=== PATIENT | male | born 1960 | race Caucasian/White ===

== ENCOUNTER 2018-11-09 14:31 | Emergency (ER) | payer MEDICAID, SELFPAY ==
[2018-11-09 14:37] VITALS: BP 130/90; PULSE 114; RESP 20; TEMP 36.8; O2SAT 97
--- NOTE | 2018-11-09 14:51 | W.ED.GENAD ---
Discharge Plan Disposition Patient Disposition: AGAINST MEDICAL ADVICE Condition: Stable Discharge Details Chief Complaint: AMS/LOC Clinical Impression: Fall, Face lacerations, Laceration of arm, left, multiple sites, Hypomagnesemia, Chronic hyponatremia, Skin tear, Skin cancer Primary Care Provider: Gurvinder Denis ED Provider: Talon Galeano Home Meds and New Rx's Prescriptions: No Action furosemide [Lasix] 20 MG tablet 20 mg PO DAILY RF: 0 pediatric ghlrfxrc-kolb-lkt [Multi-Vitamins with Iron] 1 EACH tablet,chewable 1 ea PO DAILY Qty: 100 RF: 0 omeprazole 40 MG capsule,delayed release(DR/EC) 40 mg PO DAILY Qty: 30 RF: 0 magnesium gluconate 500 MG tablet 500 mg PO BID Qty: 60 RF: 0 thiamine mononitrate (vit B1) [Vitamin B-1 (mononitrate)] 100 MG tablet 100 mg PO QAM Qty: 100 RF: 0 bisoprolol fumarate 5 MG tablet 2.5 mg PO DAILY Qty: 90 RF: 3 lisinopril 5 MG tablet 2.5 mg PO DAILY Qty: 0 RF: 0 Discharge Instructions Instructions: Care For Your Stitches (ED), Skin Tear (ED) Additional Instructions: You have multiple abrasions over your face and arms. Multiple skin tears. Please keep these bandaged, wash them gently with soap and water daily. In regards to the areas that required the suturing please return in 7 to 10 days to have the sutures removed. Please leave the dressing on for 24 hours, then you may remove and begin cleaning the wound at least twice a day with soap and water. Continue to apply antibiotic ointment. Do not directly soak the area. Watch for any signs of infection and return if any increasing redness, swelling, pain, drainage. If you notice any worsening of your symptoms, or any new symptoms such as vomiting, diarrhea, fever, chills, shortness of breath, chest pain, numbness, weakness, or fainting , please return immediately to the emergency department for reevaluation. Please follow up with your primary care provider as soon as possible for reassessment and reevaluation. As always, it was a pleasure participating in your medical care today. Referrals: Gurvinder Denis MD [Primary Care Provider] - Discharge Data Discharge Date/Time-TO BE ENTERED AT DEPARTURE: 11/09/18 20:10 Medical Decision Making This is a 58-year-old male with a past medical history of medical noncompliance, alcoholism, dilated cardiomyopathy, cancer of the face, who presents today for evaluation of fall trauma and intoxication. He is brought in by EMS and police. He was initially very confrontational with EMS staff, he refused c-collar, blood pressure vital sign monitoring or IV. Upon arrival to the ED he continued to be notably confrontational. A very kena and forthright conversation was had between myself and the patient, and eventually the patient allowed us to complete our physical exam and work-up. C-collar was placed, because of the multiple falls, multiple abrasions and lacerations, and notable clinical intoxication in conjunction with the patient's notably poor historical component, a decision was made to get a ball CT scan to evaluate for significant intracranial, cervical thoracic or abdominal trauma. Aside for the notable chronic component of his severe facial deformity from his skin cancer Dr. Yao radiology notes no other significant acute intracranial cervical thoracic or abdominal trauma. Remainder the patient's exam was otherwise benign aside from multiple lacerations and skin tears. The patient did allow us to suture his left upper extremity as well as his scalp. He refused analgesia or lidocaine. His tetanus is up-to-date. We were able to convince him to allow us to give him thiamine and normal saline, however he refused all other additional medication adjuncts, including calcium supplementation. Patient's laboratory work-up did return, he does demonstrate hyponatremia with a sodium of 127, however review of records reveals that this is notably normal for him, and he is often much lower in the 110-120s. Patient did have a mild anion gap, and a low bicarb, in conjunction with his hyponatremia I suspect that these are secondary to Chronic alcoholism, mild alcoholic ketosis, and be reported lizet. No clinical evidence at this time of severe alcohol overdose. After a prolonged period of observation in the ED we did have recovery technology come and evaluate the patient, patient refuses any additional resources or help from them. We did contact the family of the patient multiple times, and they all refused to come in and see the patient would bring him home. Stating directly that they did not want responsibility of him. After the patient was in the ED for quite a few hours he was reassessed by mental health, and at that time they felt noted that he was significantly clinically sober. He continued to refuse any help or services from them. I did go and reevaluate the patient myself as well, and breathalyzer does demonstrate a low alcohol level, and clinically the patient is notably sober. I offered the patient multiple resources for staying overnight, help for continued observation the patient made it very clear that he would like to go home and wants no additional help from the ED. It was my recommendation that he continues to stay to get assistance, however the patient refused this. Patient will leave against my recommendations. The patient is able to speak clearly. There is no demonstration of any slurring of speech. There is evidence of clear decision making capacity. Patient is able to ambulate well without any difficulty. There are no signs of ataxia or stumbling motions. We discussed the risks of this decision, including , lifelong disability, and illness and the patient understands. Patient is of a appropriate age to make decisions. The patient is of sound mind, appears clinically sober, and has capacity to make decisions by my clinical exam. We have provided options for treatment and discussed the risks and benefits of these options and refusing these options, including and disability specific to the patient's pathology. Patient is able to discuss the risks and benefits and alternatives of treatment and refusing treatment. We have tried to involve the patient's family or support group that was present here or by contacting them on the phone. The patient chooses to leave AGAINST MEDICAL ADVICE. Of note prior to leaving we did bandage all of the patient's superficial skin tears, we also gave him a bag of multiple bandages, nonadhesive gauze, and Kerlix. We discussed with him how to use it. We also discussed the importance of returning to remove the sutures. HPI General Date/Time Provider Initiated Documentation: 11/09/18 14:34. HPI Narrative: This is a 58-year-old male with a past medical history of notable medical noncompliance, dilated cardiomyopathy, alcoholic encephalopathy, alcoholic cirrhosis, undifferentiated skin cancer involving the left nares and face, chronic anemia, who presents today for evaluation of intoxication. The patient is a poor historian. He was found by police stumbling around outside visibly intoxicated. He had fallen a few times and suffered lacerations and abrasions to his face head ear and left and right arms. He was brought in by EMS under the custody of police. The patient is notably confrontational and uncooperative. Currently his only complaints are in regards to nursing staff and medical practitioners evaluating him. He denies any other complaints at this time. He refused vital signs, c-collar, and IV access by initial EMS. No history of blood thinner use. No other modifying factors. Related Data Home Medications Medication Instructions Recorded Confirmed bisoprolol fumarate 2.5 mg PO DAILY #90 tab 08/15/16 08/11/16 lisinopril 2.5 mg PO DAILY #0 08/15/16 08/11/16 magnesium gluconate 500 mg PO BID #60 tab 08/15/16 omeprazole 40 mg PO DAILY #30 capsule. 08/15/16 pediatric ionqlbho-ajjg-ljm 1 ea PO DAILY #100 tab.chew 08/15/16 [Multivitamins with Iron] thiamine mononitrate (vit B1) 100 mg PO QAM #100 tab 08/15/16 [Vitamin B-1 (mononitrate)] furosemide [Lasix] 20 mg PO DAILY tab-cap 08/26/16 Previous Rx's Medication Instructions Recorded bisoprolol fumarate 2.5 mg PO DAILY #90 tab 08/15/16 lisinopril 2.5 mg PO DAILY #0 08/15/16 magnesium gluconate 500 mg PO BID #60 tab 08/15/16 omeprazole 40 mg PO DAILY #30 capsule. 08/15/16 pediatric vlrdbqdk-rztc-tua 1 ea PO DAILY #100 tab.chew 08/15/16 [Multivitamins with Iron] thiamine mononitrate (vit B1) 100 mg PO QAM #100 tab 08/15/16 [Vitamin B-1 (mononitrate)] Allergies Allergy/AdvReac Type Severity Reaction Status Date / Time No Known Allergies Allergy Unverified 08/26/16 10:08 Review of Systems Review of Systems ROS Unobtainable: Unobtainable due to (Patient refuses to answer any additional review of systems questions) [facility] Medical History (Updated 08/11/16 @ 22:57 by Adriel Varela) Alcohol abuse CAD (coronary artery disease) Cirrhosis Edema extremities Hyponatremia Sacral decubitus ulcer, stage IV Social History Smoking/Tobacco Use Status: Current every day Drug use: Never Do you feel safe in your relationship?: Yes Exam Narrative Exam Narrative: 1.Const: Elderly appearing, disheveled, notable amounts of old grime on the patient. 2.Eyes: PERRL, no conjunctival injection, and symmetrical lids. 3.ENT: Notable deformity of the left face which appears to be chronic. Significant deterioration of the left face secondary to cancer. Small skin tear over the left ear. There is no evidence of raccoon eyes, huitron sign, CSF rhinorrhea, mastoid tenderness, cranial crepitus, hemotympanum, exophthalmos, or hyphema. 4.CVS: Regular rate and rhythm, Normal s1 and s2. No murmurs, carotid bruits, rubs, or gallops. Radial pulses 2+ bilaterally and symmetric. Dorsalis pedis pulses 2+ bilaterally and symmetric. 2+ capillary refill. No evidence of distant heart sounds. No extremity edema. No evidence of gross hemorrhage. 5.RESP: Airway clear, no obstructions. No abrasions or ecchymosis. Chest movement symmetric with respirations. No chest wall tenderness. Trachea midline. No crepitus. No step offs. No paradoxical movements. Lungs are clear to auscultation bilaterally. No rales, rhonchi, wheezing or stridor. Breath sound symmetric. No Sucking chest wounds. No clinical evidence of significant chest trauma. 6.GI: Soft, nondistended, nontender. Bowel tones normoactive. No masses or organomegaly. No ecchymosis or abrasions. No periumbilical ecchymosis or seatbelt sign. No flank or CVA tenderness. No clinical signs of significant trauma. Genital Exam: Intact and traumatically unremarkable genital and rectal exam with no significant bruising, blood, or deformity. Rectal tone normal, stool without gross blood. No clinical evidence of significant abdominal trauma. 7.MSK: No gross deformities or discolorations or lesions. Tolerates full range of motion of extremities without tenderness. All compartments of upper and lower extremities are soft with no tenderness. Vascular exam demonstrates brisk capillary refill and intact pulses in all extremities. Pelvic exam demonstrates a stable pelvis, nontender to lateral compression and palpation of symphysis pubis.. No clinical evidence of significant musculoskeletal trauma. 8.Skin: Warm, multiple bruises and superficial skin tears noted over the body, particularly between the second and third digit of the left hand, the first knuckle of the right hand, the posterior aspect of the left ear, there is also a notable 3 cm linear laceration to the patient's left forearm, subcutaneous tissue noted, no evidence of muscle or fascia involvement. There is also evidence of a 4 cm superficial laceration to the scalp, running directly parallel to a 4 cm superficial laceration that is slightly deeper on the proximal component closest to the eye. No evidence of calvarial involvement. 9.Neuro: mammography tech II-XII grossly intact. however cranial nerve assessment is slightly limited secondary to the patient's facial cancer Sensation grossly intact, no focal neurologic deficits. Gag reflex intact, maintaining airway, no evidence of focal deficit 10.Psych: (AAO) x3. ApproVisibly intoxicated Procedures Laceration Laceration 1: Site: scalp Side (If applicable): left Size (cm): 2 Description: linear Depth: simple, single layer Amount of anesthesia used (mL): 0 Pre-repair: wound explored, irrigated extensively and deep structures intact Skin layer closed with: nylon Size (cm): 4-0 Number of sutures: 2 Technique: other (1 simple interrupted and 1 horizontal mattess) Laceration 2: Site: upper extremity Side (If applicable): left Size (cm): 4 Description: linear Depth: simple, single layer Amount of anesthesia used (mL): 0 Pre-repair: wound explored, irrigated extensively and deep structures intact Skin layer closed with: nylon Size (cm): 4-0 Number of sutures: 3 Technique: horizontal mattress
[2018-11-09] MEDS: Omnipaque 350 MG/ML 100 ML BTL IJ (14:58)
--- NOTE | 2018-11-09 14:59 | DI.CT_ITS ---
EXAM: CT CHEST/ABD/PEL W CLINICAL HISTORY: polytrauma, drunk, facial cancer. TECHNIQUE: CT examination of the chest, abdomen and pelvis was carried out according to the usual pr otocol with intravenous contrast enhancement. COMPARISON: ABD PELVIS WITH CONTRAST from 04/19/2015 FINDINGS: Chest: There are emphysematous changes in the lungs. There is no pneumothorax or pleural effusion. T he heart is not enlarged. There is no evidence of a pericardial effusion. There is no hilar or media stinal adenopathy. There is no evidence of pulmonary embolic disease. The heart is within normal li mits in size. There is no pericardial effusion. There is no evidence of an aortic aneurysm or dissec tion. There is no evidence of a rib fracture. There is no evidence of free air or free fluid in the intraperitoneal space. Abdomen and pelvis: An enlarged fatty liver is demonstrated. The gallbladder is distended and appear s to contain small gallstones. There is no evidence of biliary dilatation. Pancreas, spleen, kidneys and adrenals are intact. There is no evidence of bowel obstruction there is nothing to suggest an a cute appendix. There is no evidence of free air or free fluid in the intraperitoneal space. The robert dder appears intact. The reproductive organs as visualized appear intact. There is no evidence of an aortic aneurysm. No acute bony abnormality is apparent. IMPRESSION: Enlarged fatty liver is noted. Gallbladder is distended and appears to contain 2 tiny gallstones. N o acute abnormality is demonstrated in the chest, abdomen or pelvis.
--- NOTE | 2018-11-09 15:02 | DI.CT_ITS ---
EXAM: CT HEAD CERV SPINE FACIAL WO CLINICAL HISTORY: polytrauma, drunk, facial cancer. TECHNIQUE: A noncontrast cranial, cervical spine and facial CT was performed according to the usual protocol. COMPARISON: HEAD AND CSPINE W/O CONTRAST from 08/11/2016 FINDINGS: HEAD AND FACE: There is no evidence of an intra or extra-axial hemorrhage. There is no evidence of a mass. Mild generalized atrophy is identified and there is evidence of small-vessel disease. There i s no evidence of a skull fracture. The paranasal sinuses are intact. There is no evidence of a masto id effusion. There is a skull and left paranasal nasal soft tissue defect of the left side. Soft ti ssue swelling is demonstrated over the left side of the face. C SPINE: Reveals no evidence of a fracture or subluxation. The vertebral bodies are well maintained. Mild degenerative changes C5-C6 and C6-C7. The posterior elements are intact. The neural canal and n eural foramen appear patent. The odontoid is intact and is closely applied to the anterior arch of C 1. The prevertebral soft tissues appear unremarkable. IMPRESSION: No evidence of C-spine fracture or dislocation.
[2018-11-09 15:18] LABS: Abs Immature Grans 0.02 k/cumm (0.0-0.09); Absolute Basophil Count 0.07 k/cumm (0.0-0.2); Absolute Eosinophil Count 0.08 k/cumm (0.0-0.7); Absolute Lymphocyte Count 2.03 k/cumm (1.2-3.4); Absolute Monocyte Count 1.33 k/cumm (0.11-0.7); Absolute Neutrophil Count 4.39 k/cumm (1.2-6.7); Basophils % 0.9; HCT 30.1 % (40.0-50.0); HGB 10.6 g/dL (13.5-17.5); Immature Grans % 0.3; Lymphocytes % 25.6; Mean Corp. HGB Concentration 35.2 g/dL (32.0-36.0); Mean Corpuscular Hemoglobin 34.8 pg (27.0-33.0); Mean Corpuscular Volume 98.7 fL (80-95); Mean Platelet Volume 9.6 fL (8.0-11.0); Monocytes % 16.8; Neutrophils % 55.4; Platelet Count 167 x1000/uL (130-400); RBC 3.05 m/cumm (4.50-6.00); RBC Distribution Width 14.3 % (11.8-14.1); White Blood Cell Count 7.92 k/cumm (4.4-10.8)
[2018-11-09 15:26] LABS: ALT 44 U/L (16-63); AST 100 U/L (15-37); Albumin 2.6 g/dL (3.4-5.0); Alkaline Phosphatase 171 U/L (46-116); Anion Gap 16.6 mmol/L (3-11); BUN 8 mg/dL (7-18); Bilirubin, Total 0.9 mg/dL (0.2-1.0); CO2 18.4 mmol/L (21.0-32.0); CREATININE 0.96 mg/dL (0.70-1.30); Chloride 92 mmol/L (98-107); ETHANOL BLOOD 221.5 mg/dL (<3); Glucose 101 mg/dL (70-100); Lipase 95 U/L (73-393); Potassium 3.8 mmol/L (3.5-5.1); Sodium 127 mmol/L (136-145); Total Protein 6.8 g/dL (6.4-8.2)
[2018-11-09 15:27] LABS: Prothrombin Time 12.5 sec (9.3-11.0)
[2018-11-09 15:29] LABS: INR 1.2 (0.9-1.1)
[2018-11-09] MEDS: Normal Saline 1,000 ML 1000 ML IV (15:35)
[2018-11-09] MEDS: Lidocaine/Epinephri/Tetracaine Topical Gel 3 ML (15:35)
[2018-11-09 15:42] LABS: Acetaminophen 6 ug/mL (10-30); Salicylate < 2.8 mg/dL (2.8-20.0)
[2018-11-09 16:00] VITALS: RESP 18
[2018-11-09] MEDS: THIAMINE 100 MG in Normal Saline 100 ML 200 MG IVPB (16:56)
--- NOTE | 2018-11-09 17:00 | NUR.NOTE ---
sutures placed to left formarm and left side of forhead by md Nursing Note:
--- NOTE | 2018-11-09 18:00 | NUR.NOTE ---
pt asissted with [facility] prn Nursing Note:
--- NOTE | 2018-11-09 18:54 | NUR.NOTE ---
sbar given pt resting in bed pending eval for transfer Nursing Note:
== END 2018-11-09 20:10 | disposition left against medical advice (07) ==
PROVIDERS: Emergency Provider Student in an Organized Health Care Education/Training Program; PCP Internal Medicine
DX: F10.220 Alcohol dependence with intoxication, uncomplicated (principal); S01.81XA Laceration without foreign body of other part of head, initial encounter; S41.112A Laceration without foreign body of left upper arm, initial encounter; E83.42 Hypomagnesemia; E87.1 Hypo-osmolality and hyponatremia; W01.0XXA Fall on same level from slipping, tripping and stumbling without subsequent striking against object, initial encounter
CPT/HCPCS: 12002; 12011; 36415; 74177; 80053; 83690; 96361; 96365; 99285; 70450; 70486; 71260; 72125; 80320; 80329; 85025; 85610; 85730; 99284; J3490; L0172

== ENCOUNTER 2020-09-27 17:13 | Inpatient (IN) | payer MEDICARE, MEDICAID, SELFPAY ==
--- NOTE | 2020-09-27 17:30 | RT.EKG_ITS ---
APPROVED REPORT Exam: Resting ECG Reason for Exam: weakness Patient Location: E HR:113 bpm ECG Measurements Heart Rate 113 AXIS WV 139 P 66 QRSd 96 QRS -52 QT 361 T 67 QTc 491 Conclusion Sinus tachycardia...rate> 99 Left axis deviation...QRS axis (-30,-90) Low voltage, extremity leads...all extremity leads <0.5mV
[2020-09-27 17:40] VITALS: BP 136/65; PULSE 117; RESP 20; TEMP 37.2; O2SAT 90
--- NOTE | 2020-09-27 17:45 | DI.CT_ITS ---
Exam(s) CT HEAD WO EXAM: CT HEAD WO CLINICAL HISTORY: mass, extensive. TECHNIQUE: Imaging Protocol: Axial computed tomography images with coronal and sagittal reformatted images were created and reviewed COMPARISON: CT CT HEAD CERV SPINE FACIAL WO from 11/09/2018 FINDINGS: Ventricles and Extra axial spaces: Normal in size and morphology for the patient's age. Hemorrhage: None. Cerebral parenchyma: Normal. Midline shift: None. Brainstem/Cerebellum: Normal. Calvarium: Normal. Soft Tissues: Interval progression of erosive mass involving the left anterior face with bony destruc tion of the anterior aspect of the left maxillary sinus extending to involve the inferior left orbit. Opacification of the left frontal and left ethmoid sinuses. Mastoid air cells are clear. The glob e appears intact. IMPRESSION: Progression of left-sided destructive facial mass. No acute intracranial process. RADIATION DOSE DELIVERED: 760.69mGy.cm Total DLP DATA REPOSITORY: All CT scans at this facility are submitted to the National Radiology Data Registry (NRDR) Dose Index Registry (DIR) with the [employer] ([employer]). RADIATION OPTIMIZATION: All CT scans at this facility use at least one of these dose optimization te chniques: automated exposure control; mA and/or kV adjustment per patient size (includes targeted exa ms where dose is matched to clinical indication); or iterative reconstruction.
--- NOTE | 2020-09-27 17:54 | DI.CT_ITS ---
Exam(s) CT NECK W EXAM: CT NECK W CLINICAL HISTORY: facial mass. TECHNIQUE: Imaging Protocol: Axial computed tomography images with coronal and sagittal reformatted images were created and reviewed CONTRAST MATERIAL: Intravenous: Omnipaque 350 Contrast volume:structured data in ml Contrast route:I V - Oral: yes / no COMPARISON: CT CT HEAD CERV SPINE FACIAL WO from 11/09/2018 FINDINGS: Lung apices: Emphysematous changes. Limited evaluation due to motion. No nodules or other masses. Face: Large soft tissue and bony defect involving the left side of the face from the level of the lef t frontal sinus through the level of the left maxilla. Extension across the midline of the nose. Le ft nasal destruction. destruction of left side of the palate. No intracranial extension is visible . There is invasion of the medial and inferior aspects of the left orbit. The globe appears intact. Cervical spine: Scoliosis. No destructive lesions. Vasculature: Intact. No significant stenosis. Adenopathy: None. Parotid, submandibular and thyroid glands are unremarkable. IMPRESSION: Interval progression of large destructive mass involving the left side of the face and nose. No evid ence of intracranial extension. No distant metastatic disease is identified. RADIATION DOSE DELIVERED: 298.97mGy.cm Total DLP DATA REPOSITORY: All CT scans at this facility are submitted to the National Radiology Data Registry (NRDR) Dose Index Registry (DIR) with the [employer] ([employer]). RADIATION OPTIMIZATION: All CT scans at this facility use at least one of these dose optimization te chniques: automated exposure control; mA and/or kV adjustment per patient size (includes targeted exa ms where dose is matched to clinical indication); or iterative reconstruction.
[2020-09-27] MEDS: Normal Saline 1,000 ML 1000 ML IV (18:20)
[2020-09-27 18:21] VITALS: RESP 20
[2020-09-27 18:57] LABS: Abs Immature Grans 0.12 10^3/uL (0.0-0.06); Absolute Basophil Count 0.05 10^3/uL (0.0-0.2); Absolute Eosinophil Count 0.04 10^3/uL (0.0-0.7); Absolute Monocyte Count 1.07 10^3/uL (0.1-0.8); Basophils % 0.4; Eosinophils % 0.3; HCT 34.6 % (40.0-50.0); HGB 11.1 g/dL (13.5-17.5); MCH 30.6 pg (27.0-33.0); MCHC 32.1 % (32.0-36.0); MCV 95.3 fL (80-95); Monocytes % 8.5; Neutrophils % 81.8; Nucleated RBC 0 %; Platelet Count 116 10^3/uL (130-400); RBC 3.63 10^6/uL (4.36-5.78); RDW 13.5 % (11.8-14.1); RDW-SD 47.7 fL; WBC 12.56 10^3/uL (4.4-10.8)
[2020-09-27 18:58] LABS: Absolute Neutrophil Count 10.27 10^3/uL (1.2-6.7)
[2020-09-27 19:06] LABS: Ammonia 12 umol/L (11-32)
[2020-09-27 19:13] LABS: ALT 11 U/L (16-63); AST 21 U/L (15-37); Albumin 2.3 g/dL (3.4-5.0); Alkaline Phosphatase 93 U/L (46-116); Anion Gap 10.1 mmol/L (3-11); BUN 25 mg/dL (7-18); Bilirubin, Total 0.6 mg/dL (0.2-1.0); CO2 27.9 mmol/L (21.0-32.0); CREATININE 1.2 mg/dL (0.70-1.30); Calcium 8.2 mg/dL (8.5-10.1); Chloride 107 mmol/L (98-107); ETHANOL BLOOD 3.4 mg/dL (<3); Glucose 129 mg/dL (74-106); Magnesium 2.2 mg/dL (1.8-2.4); Potassium 3.3 mmol/L (3.5-5.1); Sodium 145 mmol/L (136-145); Total Protein 6.6 g/dL (6.4-8.2)
[2020-09-27 19:17] LABS: Troponin I 0.08 ng/mL (<0.06)
[2020-09-27] MEDS: Omnipaque 350 MG/ML 100 ML BTL IJ (19:53)
--- NOTE | 2020-09-27 19:55 | DI.RAD_ITS ---
Exam(s) XR CHEST 2V PA LATERAL EXAM: XR CHEST 2V PA LATERAL CLINICAL HISTORY: weakness TECHNIQUE: 2D digital imaging was performed. COMPARISON: CR CHEST 2 VIEWS PA,LAT from 08/11/2016 FINDINGS: MEDIASTINUM: Normal. HEART: Normal. PULMONARY VASCULATURE: Normal. LUNGS: Clear. PLEURAL SPACE: No pleural effusion or pneumothorax. BONE:Mild and mid and lower thoracic compression fractures. IMPRESSION: No acute abnormality. DATA REPOSITORY: RADIATION DOSE DELIVERED:
[2020-09-27] MEDS: Normal Saline Flush 10 ML SYR IVP (19:56)
[2020-09-27] MEDS: Normal Saline - Diluent 50 ML VIAL IV (19:56)
--- NOTE | 2020-09-27 20:16 | DI.VRAD_ITS ---
PROCEDURE INFORMATION: Exam: CT Head Without Contrast Exam date and time: 09/27/2020 6:01 PM Age: 60 years old Clinical indication: Pain; Other: Face/heqad; Patient HX: Extensive mass TECHNIQUE: Imaging protocol: Computed tomography of the head without contrast. Radiation optimization: All CT scans at this facility use at least one of these dose optimization techniques: automated exposure control; mA and/or kV adjustment per patient size (includes targeted exams where dose is matched to clinical indication); or iterative reconstruction. COMPARISON: CT HEAD CERV SPINE FACIAL WO 11/09/2018 2:43 PM FINDINGS: Brain: Normal. No hemorrhage. Unremarkable white matter. No mass effect. Extra-axial space: No evidence of subdural hemorrhage. Cerebral ventricles: No ventriculomegaly. Paranasal sinuses: Mucosal thickening and/or soft tissue tumor are noted in the left ethmoid air cells and left frontal sinus. Mastoid air cells: Visualized mastoid air cells are well aerated. Vasculature: Mild carotid arterial calcifications are noted. Bones/joints: Negative for fracture in the calvarium. Please see discussion below. Soft tissues: A large destructive process is noted in the anterior mid face, greatest on the left. The anterior left maxilla is absent, including the alveolar ridge. Soft tissue mass extends into the right upper lip, around the nose, and along the inferior left orbit. Mucosal thickening and/or tumor are noted in the left maxillary sinus. The tumor changes are notably progressed from 2019. A noncontrast head CT is inadequate to exclude intracranial extension of tumor in this case, however there is no gross intracranial extension observed. IMPRESSION: 1. Negative for intracranial hemorrhage. 2. Negative for pneumocephalus. 3. Large destructive left maxillary tumor. Dictated and Authenticated by: Arik Klein MD. Ordering:ANAMARIA Azul MD
--- NOTE | 2020-09-27 20:26 | DI.VRAD_ITS ---
PROCEDURE INFORMATION: Exam: CT Neck With Contrast Exam date and time: 09/27/2020 6:39 PM Age: 60 years old Clinical indication: Pain; Other: Extensive mass; Patient HX: Facial mass TECHNIQUE: Imaging protocol: Computed tomography images of the neck with contrast. Radiation optimization: All CT scans at this facility use at least one of these dose optimization techniques: automated exposure control; mA and/or kV adjustment per patient size (includes targeted exams where dose is matched to clinical indication); or iterative reconstruction. Contrast material: [id number]; Contrast volume: 100 ml; Contrast route: INTRAVENOUS (IV); COMPARISON: CT NECK WITH CONTRAST 04/20/2015 5:44 PM FINDINGS: Nasopharynx: Unremarkable. Oropharynx: Unremarkable. No significant tonsillar enlargement. Hypopharynx: Unremarkable. Larynx: Unremarkable larynx. Retropharyngeal space: Unremarkable. Submandibular/Parotid glands: Normal. Glands are normal in size. Thyroid: Normal thyroid. Lymph nodes: Negative for cervical lymphadenopathy. Trachea: Normal trachea. Lungs: Lung apices are clear. Bones/joints: A large destructive mass is noted in the mid face, also described on the head CT. Bony destruction is notably progressed from previous studies. There is destruction of the left maxillary alveolar ridge, anterior wall of the maxillary sinus, anterior left ethmoid, and the portion of the hard palate. Soft tissue tumor is observed around the margins of the central cavity, particularly at the right upper lobe, right side of the nose, extending along the left maxillary sinus whitman, and extending into the inferior left orbit. Vasculature: Moderate vascular calcifications noted in the carotid arteries bilaterally. Remodeling of vessels is noted, and stenosis is less than 50% bilaterally. Soft tissues: Soft tissue tumor again noted. Negative for secondary or distant superficial tumors. Pterygopalatine fossa are intact and unremarkable. IMPRESSION: 1. 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 2. Negative for distant metastatic disease. Dictated and Authenticated by: Arik Klein MD. Ordering:ANAMARIA Azul MD
--- NOTE | 2020-09-27 20:28 | DI.VRAD_ITS ---
PROCEDURE INFORMATION: Exam: XR Chest Exam date and time: 09/27/2020 6:01 PM Age: 60 years old Clinical indication: Other: Weakness TECHNIQUE: Imaging protocol: XR of the chest. Views: 2 views. COMPARISON: CT CHEST/ABD/PEL W 11/09/2018 2:50 PM FINDINGS: Lungs: Lungs are clear, mildly hyperaerated. There are no suspicious pulmonary nodules by chest radiograph. Negative for consolidation or collapse. Pulmonary vessels are not congested. Pleural spaces: Unremarkable. No pleural effusion. No pneumothorax. Heart/Mediastinum: Mild cardiomegaly. Normal mediastinal contours. Bones/joints: Mild compression fractures noted at several levels in the thoracic spine, age-indeterminate. IMPRESSION: 1. No acute cardiopulmonary abnormality. 2. Multiple compression fractures, age-indeterminate. Dictated and Authenticated by: Arik Klein MD. Ordering:ANAMARIA Azul MD
--- NOTE | 2020-09-27 20:31 | ED.GENADUL_ITS ---
Discharge Plan Discharge Details Chief Complaint: [facility] Primary Care Provider: Gurvinder Denis ED Provider: Latha Cisneros Home Meds and New Rx's Prescriptions: No Action No Known Home Meds RF: 0 Medical Decision Making Patient is alert, oriented, of decisional capacity, he is cachectic and appears chronically ill Labs appear to be at baseline for patient Troponin is mildly elevated, 0.8 increased to 1 Ammonia within normal limits, no significant evidence of dehydration with a BUN 25 Alcohol level of 3 4 Denies any chest pain or shortness of breath, EKG without evidence of acute ST elevation [place], patient DNR/DNI status He understands that he has significant cancer of his face that is not reversible and continues to decline any treatment for this He is alert and oriented, of decisional capacity but he is very difficult to understand secondary to facial deformity I discussed the case with patient's daughter, Alee Valles, [phone] and Shweta (pts sister) has been persistent. [phone] will admit pt for further evaluation and observation Dr Echevarria agreeable Medical Records Medical records reviewed: Yes I reviewed the patient's medical records. Lab Data Lab results reviewed: Yes I reviewed the patient's lab results. HPI General Mode of arrival: ambulatory . Date/Time Provider Initiated Documentation: 09/27/20 17:36 . Limitations to Documentation: no limitations . Information obtained by: patient . HPI Narrative: This 60-year-old gentleman with history of hyponatremia, metabolic encephalopathy, alcoholism, rhabdomyolysis, left bundle branch block, elevated troponin, dilated cardiomyopathy presents with report of weakness. Patient reportedly is having difficulty getting around secondary to his weakness. Apparently he was sitting outside of the main emergency where he was going to get cigarettes, beer, and food and he was too weak to stand up. He states he lives at home alone. He denies any chest pain or shortness of breath. He feels generally weak and tired. He does not currently go to a provider for healthcare. He states he drinks daily. He usually would not give me the amount. Denies any falls or injuries. He denies any strength or sensation change to extremities. States he has difficulty swallowing liquids. He also is aware that he likely has skin cancer and has declined follow-up He is Related Data Home Medications Medication Instructions Recorded Confirmed Unknown [No Known Home Meds] 09/27/20 09/27/20 Allergies Allergy/AdvReac Type Severity Reaction Status Date / Time No Known Allergies Allergy Unverified 08/26/16 10:08 General Stated Complaint: [facility] YAZMIN: 2 Review of Systems All systems reviewed & are unremarkable except as noted in HPI and below PFSH Medical History (Updated 09/27/20 @ 23:16 by Misha Echevarria MD) Alcohol abuse CAD (coronary artery disease) Cirrhosis Edema extremities Hyponatremia Sacral decubitus ulcer, stage IV Social History Smoking/Tobacco Use Status: Current every day Smoking risk assessment performed?: Yes Drug use: Never Do you feel safe in your relationship?: Yes Exam Const General: frail appearing Orientation: alert and oriented x3 HENMT Other: Extensive erosion and necrotic tissue to face Maintaining secretions Eyes Pupils: PERRL Resp Effort & Inspection: normal respiratory effort Cardio Rate: tachycardic Rhythm: regular rhythm GI Inspection: normal to inspection Other: Nontender Skin Other: Extensive excoriations, erosions, necrosis to face Neuro General: patient alert and patient oriented x3 Extrem Other: Distal pulses intact Course Vital Signs Vital signs: Vital Signs Temperature 37.2 C 09/27/20 17:40 Pulse 117 H 09/27/20 17:40 Respiratory Rate 20 09/27/20 17:40 Blood Pressure 136/65 09/27/20 17:40 Pulse Oximetry 90 L 09/27/20 17:40 Temperature 37.2 C 09/27/20 17:40 Temperature Source Temporal Artery Scan 09/27/20 17:40 Pulse 117 H 09/27/20 17:40 Respiratory Rate 20 09/27/20 18:21 Respiratory Effort Non-Labored 09/27/20 18:21 Respiratory Depth Normal 09/27/20 18:21 Respiratory Pattern Normal 09/27/20 18:21 Blood Pressure 136/65 09/27/20 17:40 Pulse Oximetry 90 L 09/27/20 17:40 Oxygen Delivery Method Room Air 09/27/20 17:40 Oxygen Flow Rate 0 09/27/20 17:40 Pain Level 0 09/27/20 17:40 Lab/Test Results Lab/Test Results: Laboratory Tests Range/Units 09/27/20 09/27/20 09/27/20 18:45 18:45 18:45 WBC (4.4-10.8) 10^3/uL 12.56 H RBC (4.36-5.78) 10^6/uL 3.63 L Hgb (13.5-17.5) g/dL 11.1 L Hct (40.0-50.0) % 34.6 L MCV (80-95) fL 95.3 H MCH (27.0-33.0) pg 30.6 MCHC (32.0-36.0) % 32.1 RDW (11.8-14.1) % 13.5 Plt Count (130-400) 10^3/uL 116 L MPV (8.0-11.0) fL 11.0 Immature Gran % 1.0 Neutrophils % 81.8 Lymphocytes % 8.0 Monocytes % 8.5 Eosinophils % 0.3 Basophils % 0.4 Nucleated RBC % % 0 Absolute Neutrophils (1.2-6.7) 10^3/uL 10.27 H Absolute Lymphocytes (1.2-3.4) 10^3/uL 1.00 L Absolute Monocytes (0.1-0.8) 10^3/uL 1.07 H Absolute Eosinophils (0.0-0.7) 10^3/uL 0.04 Absolute Basophils (0.0-0.2) 10^3/uL 0.05 Sodium (136-145) mmol/L 145 Potassium (3.5-5.1) mmol/L 3.3 L Chloride (98-107) mmol/L 107 Carbon Dioxide (21.0-32.0) mmol/L 27.9 Anion Gap (3-11) mmol/L 10.1 BUN (7-18) mg/dL 25 H Creatinine (0.70-1.30) mg/dL 1.2 Estimated GFR/1.73 m2 (mL/min/1.73m2) >= 60.00 Glucose (74-106) mg/dL 129 H Calcium (8.5-10.1) mg/dL 8.2 L Magnesium (1.8-2.4) mg/dL 2.2 Total Bilirubin (0.2-1.0) mg/dL 0.6 AST (15-37) U/L 21 ALT (16-63) U/L 11 L Alkaline Phosphatase (46-116) U/L 93 Ammonia (11-32) umol/L 12 Troponin I (<0.06) ng/mL 0.08 H* Total Protein (6.4-8.2) g/dL 6.6 Albumin (3.4-5.0) g/dL 2.3 L Ethyl Alcohol (<3) mg/dL 3.4
--- NOTE | 2020-09-27 21:00 | RT.EKG_ITS ---
APPROVED REPORT Exam: Resting ECG Reason for Exam: elevated trop Patient Location: E HR:104 bpm ECG Measurements Heart Rate 104 AXIS AL 143 P 60 QRSd 101 QRS -48 QT 396 T 58 QTc 515 Conclusion Sinus tachycardia. Multiple ventricular premature complexes Low voltage, extremity leads Anteroseptal q waves Prolonged QT interval...QTc >500mS
[2020-09-27 21:39] VITALS: BP 111/74; PULSE 101; RESP 22; TEMP 36.9; O2SAT 90
[2020-09-27 22:20] LABS: Source Nasal/Nares
[2020-09-27 22:30] VITALS: BP 136/89; PULSE 97; RESP 14; O2SAT 89
--- NOTE | 2020-09-27 23:06 | W.PM.HP.N ---
Date of service: 09/27/20 Time of Service: 23:06 Assessment and Plan Assessment and plan (1) Failure to thrive: Status: Acute Assessment and plan: It is manifestly clear that patient is unable to care for self and it will be important to have care management involved in trying to establish a more functional disposition. In the meantime the several medical issues are as follows: 1. Elevated troponin: unclear significance at this point. By symptoms and EKG does not appear to be ACS. Will give dose ASA out of abundance of caution and trend out troponins but I do not see cause at present for heparinization, DAPT or cardiac intervention. 2. EtOH: will give banana bag and place on CIWA 3. Hypokalemia: replace and track 4. Leukocytosis: unknown etiology, CXR negative, will check urine, and monitor white count 5. Advance directives: per ER patient has requested DNR History of Present Illness History of Present Illness Chief Complaint: weakness Narrative: 60 male with alcoholism, dilated cardiomyopathy and profoundly destructive facial SCCA -- here today stating he felt weak. No CP or SOB. In ER findings of note for dishevelment, cachexia and patient soaked in urine. Lab w/u of note for white count 12, K 3.3, trop 0.08 then 0.10 (note prior h/o elevated trop with no evidence ACS), EKG with old septal q waves, no acute ischemic changes, and negative CXR, and head and neck CT (other than destructive lesion left face). Due to elevated troponin, along with manifest inability to care for self, he is admitted for further evaluation and management. Review of Systems All systems reviewed & are unremarkable except as noted in HPI and below PFSH Medical History Alcohol abuse CAD (coronary artery disease) Cirrhosis Edema extremities Hyponatremia Sacral decubitus ulcer, stage IV Social History Smoking/Tobacco Use Status: Current every day Smoking risk assessment performed?: Yes Drug use: Never Do you feel safe in your relationship?: Yes Meds Allergies and Home Medications Allergies Allergy/AdvReac Type Severity Reaction Status Date / Time No Known Allergies Allergy Unverified 08/26/16 10:08 Home Medications Medication Instructions Recorded Confirmed Type Unknown [No Known Home Meds] 09/27/20 09/27/20 History Exam Narrative Exam Narrative: 136/89, 97, 36.0, 14, 89-90% RA. HEENT extensive destruction left side of face; neck supple; lungs clear; heart RRR; abdomen soft and [place]; extremities w/o edema; neuro Ox3, answers questions appropriately, moves all 4s Results Labs Result diagrams: 09/27/20 18:45 09/27/20 18:45 Labs: Laboratory Results - last 24 hr 09/27/20 09/27/20 09/27/20 18:45 18:45 18:45 WBC 12.56 H RBC 3.63 L Hgb 11.1 L Hct 34.6 L MCV 95.3 H MCH 30.6 MCHC 32.1 RDW 13.5 Plt Count 116 L MPV 11.0 Immature Gran % 1.0 Neutrophils % 81.8 Lymphocytes % 8.0 Monocytes % 8.5 Eosinophils % 0.3 Basophils % 0.4 Nucleated RBC % 0 Absolute Neutrophils 10.27 H Absolute Lymphocytes 1.00 L Absolute Monocytes 1.07 H Absolute Eosinophils 0.04 Absolute Basophils 0.05 Sodium 145 Potassium 3.3 L Chloride 107 Carbon Dioxide 27.9 Anion Gap 10.1 BUN 25 H Creatinine 1.2 Estimated GFR/1.73 m2 >= 60.00 Glucose 129 H Calcium 8.2 L Magnesium 2.2 Total Bilirubin 0.6 AST 21 ALT 11 L Alkaline Phosphatase 93 Ammonia 12 Troponin I 0.08 H* Total Protein 6.6 Albumin 2.3 L Ethyl Alcohol 3.4 COVID-19 Source 09/27/20 09/27/20 21:15 21:55 WBC RBC Hgb Hct MCV MCH MCHC RDW Plt Count MPV Immature Gran % Neutrophils % Lymphocytes % Monocytes % Eosinophils % Basophils % Nucleated RBC % Absolute Neutrophils Absolute Lymphocytes Absolute Monocytes Absolute Eosinophils Absolute Basophils Sodium Potassium Chloride Carbon Dioxide Anion Gap BUN Creatinine Estimated GFR/1.73 m2 Glucose Calcium Magnesium Total Bilirubin AST ALT Alkaline Phosphatase Ammonia Troponin I 0.10 H* Total Protein Albumin Ethyl Alcohol COVID-19 Source Nasal/Nares Last Vital Signs Temp 36.9 C 09/27/20 21:39 Pulse 97 H 09/27/20 22:30 Resp 14 09/27/20 22:30 BP 136/89 09/27/20 22:30 Pulse Ox 89 L 09/27/20 22:30
[2020-09-27 23:10] LABS: COVID-19 PCR Negative (Negative)
[2020-09-28] MEDS: MAGNESIUM SULFATE 8.12 MEQ, MULTIVITAMIN 10 ML, THIAMINE 100 MG, FOLIC ACID 1 MG in Nor... 168.867 MG IV (01:53)
[2020-09-28 02:05] VITALS: PULSE 97
[2020-09-28] MEDS: Aspirin 325 MG TAB PO (02:22)
[2020-09-28 02:27] VITALS: BP 122/75; PULSE 90; RESP 22; TEMP 36.3; O2SAT 95
[2020-09-28] MEDS: Lactated Ringers 1,000 ML 80 ML IV ×2 (03:30→16:44)
[2020-09-28 07:00] VITALS: PULSE 86
[2020-09-28 07:42] LABS: HGB 11.8 g/dL (13.5-17.5); MCH 29.8 pg (27.0-33.0); MCHC 31.9 % (32.0-36.0); MCV 93.4 fL (80-95); MPV 11.5 fL (8.0-11.0); Platelet Count 127 10^3/uL (130-400); RBC 3.96 10^6/uL (4.36-5.78); RDW 13.7 % (11.8-14.1); WBC 11.76 10^3/uL (4.4-10.8)
[2020-09-28 08:03] LABS: Anion Gap 9.9 mmol/L (3-11); BUN 23 mg/dL (7-18); CO2 28.1 mmol/L (21.0-32.0); CREATININE 0.9 mg/dL (0.70-1.30); Calcium 8.1 mg/dL (8.5-10.1); Chloride 110 mmol/L (98-107); Glucose 101 mg/dL (74-106); Potassium 3.1 mmol/L (3.5-5.1); Sodium 148 mmol/L (136-145)
[2020-09-28 08:22] LABS: Troponin I 0.16 ng/mL (<0.06)
[2020-09-28 08:44] VITALS: BP 148/86; PULSE 90; RESP 21; TEMP 36.1; O2SAT 97
--- NOTE | 2020-09-28 09:00 | W.PALLCONSUL ---
Date of service: 09/28/20 Time of Service: 09:00 History of Present Illness History of Present Illness Chief Complaint: weak Narrative: From H and P: History of Present Illness History of Present Illness Chief Complaint: weakness Narrative: 60 male with alcoholism, dilated cardiomyopathy and profoundly destructive facial SCCA -- here today stating he felt weak. No CP or SOB. In ER findings of note for dishevelment, cachexia and patient soaked in urine. Lab w/u of note for white count 12, K 3.3, trop 0.08 then 0.10 (note prior h/o elevated trop with no evidence ACS), EKG with old septal q waves, no acute ischemic changes, and negative CXR, and head and neck CT (other than destructive lesion left face). Due to elevated troponin, along with manifest inability to care for self, he is admitted for further evaluation and management. Interim history?I came to see Gene this morning. He continually stated that he wanted to go home, he was fine taking care of himself, he did not need home health. He said he was feeling fine. It was very difficult to understand him due to facial destruction I came back to see him in the evening. Staff states that he refused a wound consult, refused nursing to reapply the bandages but kept his lips together, one was hanging down. He also declined any type of cardiac work-up. When I did ask him how he was going to care for himself at home he states that he is able to take care of himself and his only wishes to go home. 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 I did speak with patient and daughter Alee at [phone]. Patient knew where he was, he understood the extent of his disease process. He wanted to go home. He understands that he may soon from his wounds and destruction of his face. He still is choosing to go home. He did not want hospice. He refused correction. He said this many many times. Alee also understood that his desire was to go home. He is a DNR/DNI but I asked him to complete the paperwork on the first page of a [employer] form. He complied. From his signature etc. I expect that he has very low literacy rate and may not be able to write his answers to people if they should ask him to write due to inability to understand him. I am happy to see him again but he is single minded and that he wants to go home VICKIE Review of Systems Narrative: I worked very hard to try to understand patient, but it was extremely difficult due to the facial destruction and problems articulating because of lack of lips hard palate etc. He continually said he felt fine [facility] Medical History Alcohol abuse CAD (coronary artery disease) Cirrhosis Edema extremities Hyponatremia Sacral decubitus ulcer, stage IV Social History Smoking/Tobacco Use Status: Current every day Smoking risk assessment performed?: Yes Drug use: Never Do you feel safe in your relationship?: Yes Exam Narrative Exam Narrative: Disheveled man. Much of the left side of his face has a come to his skin cancer. There are bones of his nose that are showing. You can see his tongue when he talks due to destruction of his lips. His lips are being held together by a Band-Aid, although correlate. His heart was regular. Lungs diminished sounds. Abdomen nontender. He refused to let me look at his buttocks wound Results Last Vital Signs Temp 97.0 F L 09/28/20 08:44 Pulse 90 09/28/20 08:44 Resp 21 09/28/20 08:44 BP 148/86 H 09/28/20 08:44 Pulse Ox 97 09/28/20 08:44 09/27/[address] IMPRESSION: Progression of left-sided destructive facial mass. No acute intracranial process. Labs Result diagrams: 09/28/20 07:10 09/28/20 07:10 Labs: Laboratory Results - last 24 hr 09/27/20 09/27/20 09/27/20 18:45 18:45 18:45 WBC 12.56 H RBC 3.63 L Hgb 11.1 L Hct 34.6 L MCV 95.3 H MCH 30.6 MCHC 32.1 RDW 13.5 Plt Count 116 L MPV 11.0 Immature Gran % 1.0 Neutrophils % 81.8 Lymphocytes % 8.0 Monocytes % 8.5 Eosinophils % 0.3 Basophils % 0.4 Nucleated RBC % 0 Absolute Neutrophils 10.27 H Absolute Lymphocytes 1.00 L Absolute Monocytes 1.07 H Absolute Eosinophils 0.04 Absolute Basophils 0.05 Sodium 145 Potassium 3.3 L Chloride 107 Carbon Dioxide 27.9 Anion Gap 10.1 BUN 25 H Creatinine 1.2 Estimated GFR/1.73 m2 >= 60.00 Glucose 129 H Calcium 8.2 L Magnesium 2.2 Total Bilirubin 0.6 AST 21 ALT 11 L Alkaline Phosphatase 93 Ammonia 12 Troponin I 0.08 H* Total Protein 6.6 Albumin 2.3 L Ethyl Alcohol 3.4 COVID-19 Source SARS-CoV-2 (PCR) 09/27/20 09/27/20 09/28/20 21:15 21:55 07:10 WBC RBC Hgb Hct MCV MCH MCHC RDW Plt Count MPV Immature Gran % Neutrophils % Lymphocytes % Monocytes % Eosinophils % Basophils % Nucleated RBC % Absolute Neutrophils Absolute Lymphocytes Absolute Monocytes Absolute Eosinophils Absolute Basophils Sodium 148 H Potassium 3.1 L Chloride 110 H Carbon Dioxide 28.1 Anion Gap 9.9 BUN 23 H Creatinine 0.9 Estimated GFR/1.73 m2 >= 60.00 Glucose 101 Calcium 8.1 L Magnesium Total Bilirubin AST ALT Alkaline Phosphatase Ammonia Troponin I 0.10 H* 0.16 H* Total Protein Albumin Ethyl Alcohol COVID-19 Source Nasal/Nares SARS-CoV-2 (PCR) Negative 09/28/20 07:10 WBC 11.76 H RBC 3.96 L Hgb 11.8 L Hct 37.0 L MCV 93.4 MCH 29.8 MCHC 31.9 L RDW 13.7 Plt Count 127 L MPV 11.5 H Immature Gran % Neutrophils % Lymphocytes % Monocytes % Eosinophils % Basophils % Nucleated RBC % Absolute Neutrophils Absolute Lymphocytes Absolute Monocytes Absolute Eosinophils Absolute Basophils Sodium Potassium Chloride Carbon Dioxide Anion Gap BUN Creatinine Estimated GFR/1.73 m2 Glucose Calcium Magnesium Total Bilirubin AST ALT Alkaline Phosphatase Ammonia Troponin I Total Protein Albumin Ethyl Alcohol COVID-19 Source SARS-CoV-2 (PCR)
--- NOTE | 2020-09-28 10:13 | IN_ITS ---
Date of service: 09/28/20 Time of Service: 11:20 PT Notes Visit Reasons: Failure to Thrive,Elevated Troponin,Alcoholism Physical Therapy Inpatient Initial Evaluation Date: 09/28/2020 Referring Doctor: Arabella Caballero MD PT Orders: PT CONSULT: Limited ability Precautions: Fall. Standard. Activity as tolerated. Patient Profile/Admitting Diagnosis: Reuben is a 60-year-old male with past medical history significant for EtOH abuse, dilated cardiomyopathy, and profoundly destructive facial squamous cell carcinoma who presented to the ED on 09/27/2020 for generalized weakness and decreased ability to care for self. Patient is diagnosed with adult failure to thrive, hypokalemia and leukocytosis. PMHx: Medical History Alcohol abuse CAD (coronary artery disease) Cirrhosis Edema extremities Hyponatremia Sacral decubitus ulcer, stage IV Social History/Home Situation: Lives alone in an apartment with 20 steps to enter, rails on B sides. He states that he does not have a car and walks to places he needs to like the grocery store. He did not use any device although he states he has a FWW. Equipment Owned/DME: FWW Subjective: Agreeable to PT consult. reports no pain nor dizziness throughout. Indicates that he is weak and is amenable to using the FWW for the walking assessment. Objective: General Observation: More than 50% of face affected by the squamous cell carcinoma, L more affected than R with significant depth of injury seen. Slough covers more than 50% of the wound. Old band-aids placed by patient and connected from one end to the other onto face in an attempt to hold the face together. A small piece of sloughed soft tissue? or may be food? fell of patient's face while doing strength testing which this PT cleaned off. R leg mildly swollen than L. L anterior and posterior leg muscles atrophic. Mental Status: Alert and oriented as to person, place, time, and purpose. Able to pay attention, focus, and respond appropriately. Speech 50-75% incomprehensible. Pain: 0/10 ROM: Right Upper Extremity: Shoulder Flexion allows up to 90 degrees only. Shoulder abduction allows up to 90 degrees only. Elbow flexion WFL. Wrist flexion WFL. Functional opening and closing of hand WFL. Left Upper Extremity: Shoulder Flexion allows up to 90 degrees only. Shoulder abduction allows up to 90 degrees only. Elbow flexion WFL. Wrist flexion WFL. Functional opening and closing of hand WFL. Right Lower Extremity: Hip flexion WFL. Hip abduction WFL. Knee flexion WFL. Knee extension -10 degrees. dorsiflexion WFL. Ankle plantarflexion WFL. Left Lower Extremity: Hip flexion WFL. Hip abduction WFL. Knee flexion WFL. Knee extension -10 degrees. Ankle dorsiflexion WFL. Ankle plantarflexion WFL. Strength: Right Upper Extremity: Shoulder flexors 3-/5. Shoulder abductors 3-/5. Elbow flexors 4-/5. Elbow extensors 3+/5. Blender Operator strong. Left Upper Extremity: Shoulder flexors 3-/5. Shoulder abductors 3-/5. Elbow flexors 4-/5. Elbow extensors 3+/5. Blender Operator strong. Right Lower Extremity: Hip flexors 4-/5. Hip abductors 4-/5. Knee flexors 4-/5. Knee extensors 3-/5. Ankle dorsiflexors 4-/5. Ankle plantarflexors 4/5. Left Lower Extremity: Hip flexors 4-/5. Hip abductors 4-/5. Knee flexors 4-/5. Knee extensors 33-/5. Ankle dorsiflexors 4-/5. Ankle plantarflexors 4/5. Bed Mobility/Transfers: Supine to sit with standby assist with HOB 30 degrees Sit to stand with contact-guard assist Stand to sit with contact-guard assist Bed to toilet seat with contact-guard assist. Assisted with toileting x 2. Reclining chair to bed with contact-guard assist Gait: Instructed patient with level surface ambulation of 250 feet requiring contact-guard assist. Maria A decreased. Step height decreased. Step length decreased. Severe forward head posture. Kyphoscoliotic. Balance: Static Sitting: Normal Dynamic Sitting: Normal Static Standing: Fair Dynamic Standing: Fair Special Tests: Mobility Limitations Standardized Measure [facility] 6 clicks Basic Mobility Inpatient Short Form: Raw Score: 19 CMS Score: 42% deficit Informed Consent/Education: Patient was instructed in purpose of PT consult and plan of care. Agreeable to proceed with established PT POC to achieve personal goals. Assessment: Gene demonstrates functional mobility decline requiring the use of a front wheeled walker for mobility for all mobility ADL performance. Lives alone and has 20 steps to get into his apartment. His kyphoscoliosis increases risk for falls forward he will benefit from same AD. Patient presents with clinical signs and symptoms consistent with current/admitting diagnoses that have resulted to mobility limitations, gait instability, generalized weakness, and overall ADL decline as demonstrated by the following impairment level findings: 1. Decreased strength to B UE/LE major muscle groups 2. Impaired standing balance 3. Impaired activity tolerance 4. Limitation of joint range of motion in B shoulders and knees 5. Shortness of breath 6. Swelling on R LE 7. L leg atrophic 8. Kyphoscoliosis Impairments are contributing to the following functional limitations: 1. Decline in transfer skills 2. Difficulty with ambulation without assistive device and physical assistance 3. Increased completion time for mobility ADL performance 4. Increased risk for falls 5. Difficulty with managing steps alone safely Patient is assessed as a 23179 moderate complexity based on the following: History: 60-year-old male with past medical history as indicated above Examination: Demonstrable impairment in strength, balance, and mobility level with underlying impairments and functional limitations as exhibited above as well as deficit score of 42% utilizing the [facility] Mobility Inpatient Short Form Presentation: Evolving Decision Makin moderate complexity Goals: Goals X1 week 1. Supine-Sit independent 2. Sit-Supine independent 3. Sit-Stand independent 4. Stand-Sit independent with front-wheeled walker 5. Bed-Chair independent with front-wheeled walker 6. Chair-Bed independent with front-wheeled walker 7. Independent gait on level surface with use of front wheeled walker for at least 500 feet without report of pain nor dyspnea 8. Independent stair negotiation while holding onto B rails for at least 20 steps without report of pain nor dyspnea 9. Independent with home exercise program 10. Good static and dynamic standing balance/tolerance Plan of Care/Treatment Plan: 1-2x/day, 7 days/week x 1 week. Plan of care has been reviewed with the TRANSPLANT NURSE PRACTITIONER providing the service under Physical Therapy direction. Initiate Physical Therapy intervention for pain management as needed, strengthening, bed mobility, transfers, gait, stairs, balance training, and use of assistive device. DISCHARGE RECOMMENDATIONS: Patient will benefit from home health PT services in order to progress mobility level using least restrictive assistive ambulatory device, assess home safety, identify additional equipment needs, and establish a functional maintenance program that will increase ability of patient to remain at home. TREATMENT CODE/TIME: 05640 x 20 minutes, 80803 x 27 minutes beginning at 10:13 AM. Thank you for the opportunity to participate in the care of this patient. Marylu Kim PT, DPT, CLT [facility] [place], [place]
--- NOTE | 2020-09-28 11:51 | INITIAL_ITS ---
- If Service Date Differs Date of service: 09/28/20 Time of Service: 11:51 Care Management Initial Assess REASON FOR HOSPITALIZATION:: failure to thrive PAST MEDICAL HISTORY/PAST SURGICAL HISTORY:: Medical History . Alcohol abuse. CAD (coronary artery disease). Cirrhosis. Edema extremities. Hyponatremia. Sacral decubitus ulcer, stage IV PREVIOUS FUNCTIONAL STATUS/SOCIAL/FAMILY SUPPORTS:: Tia lives alone in an apartment in [place], [place]. He has a daughter and a son who live in [facility]. He does not maintain a relationship with either one. His daughter stopped communicating with him 3 years ago as his life choices were a barrier to his well being and their relationship. His son has substance use issues and is in and out of fdc and rehab and so, is unavailable. tia is very weak and frail however he does not receive any community services. CURRENT FUNCTIONAL STATUS:: Tia was sitting up in a chair when CM met with him. He was polite and attempted to answer questions however it was very difficult to understand him due his facial and dental deformities.When asked if he would be willing to use a white board and marker to write answers he indicated that he is unable to write, seemingly from an inability to hold onto the writing utunsil. he did share that he does not receive any services and that he has a son and a daughter. CM contacted Tia's daughter Alee to discuss Tia's care with her. She informed YONIS that she was very involved in his life up until 3 years ago when it became impossible for her to continue to try to help him. She tearfully stated that I just could not continue to watch him slowly kill himself. She sited woody untreated, destructive cancer on his face, his unwillingness to stop drinking and smoking or to seek help for his medical issues.She shared that her brother is an addict who vacillates between rehab and fdc and who is not a good force in her father's life; they have always had a strained relationship. ADVANCE DIRECTIVES:: None on file Has patient been provided with info about the portal/API?: Yes Did the patient sign up for the portal?: No CODE STATUS:: DNR/DNI INSURANCE COVERAGE / FINANCIAL ISSUES:: Medicaid PRIMARY CARE PHYSICIAN:: Gurvinder Denis MD POTENTIAL DISCHARGE NEEDS:: Follow up with PCP and plan of care PATIENT/FAMILY EDUCATION NEEDS:: Review of discharge instructions, medications, follow up plan, limitations, Ask Me Three TRANSPORTATION:: to be determined by disposition. PLAN:: Tia's discharge plan is unclear at this time.He would likely benefit from SNF placement but it is unlikley that he will be willing to go. CM will continue to support Tia and his discharge planning needs.
[2020-09-28] MEDS: POTASSIUM CHLORIDE 20 MEQ/100 ML BAG 50 MEQ IVPB (12:16)
[2020-09-28 12:51] LABS: PTT Activated 25.4 sec (21.0-27.5)
[2020-09-28 12:57] LABS: INR 1.1 (0.9-1.1); Prothrombin Time 11.4 sec (9.3-11.0)
--- NOTE | 2020-09-28 13:09 | SPP_ITS ---
Date of service: 09/28/20 Time of Service: 13:00 Subjective Swallow consult. Pt with profoundly destructive facial SCCA per MD H & P. This was evident upon PANELBOARD TANK PUMPER arrival. Pt denies any dysphagia, states he eats regular foods including meats and potatoes without issue. Pt states he uses a syringe for fluids. Suspect poor nutrition given suspected oral dysphagia due to structures/function. Discussed with Dr. Caballero. Recommend pt have ENT consult as well as customer solutions teammate consult. PANELBOARD TANK PUMPER will f/u with MD in 1-2 days as pt declining PANELBOARD TANK PUMPER and denying deficits at this time. No charge. Coding
--- NOTE | 2020-09-28 13:09 | W.SPSTP ---
Date of service: 09/28/20 Time of Service: 13:00 Subjective Swallow consult. Pt with profoundly destructive facial SCCA per MD H & P. This was evident upon ADVANCED MANUFACTURING ENGINEER arrival. Pt denies any dysphagia, states he eats regular foods including meats and potatoes without issue. Pt states he uses a syringe for fluids. Suspect poor nutrition given suspected oral dysphagia due to structures/function. Discussed with Dr. Caballero. Recommend pt have ENT consult as well as certified medical assistant consult. ADVANCED MANUFACTURING ENGINEER will f/u with MD in 1-2 days as pt declining ADVANCED MANUFACTURING ENGINEER and denying deficits at this time. No charge. Coding
[2020-09-28 13:46] LABS: D-Dimer > 7500 ng/mlFEU (<500)
[2020-09-28 14:21] LABS: Troponin I 0.13 ng/mL (<0.06)
--- NOTE | 2020-09-28 14:51 | PT.INTREAT ---
Date of service: 09/28/20 Time of Service: 13:45 PT Notes Visit Reasons: Failure to Thrive,Elevated Troponin,Alcoholism Inpatient Physical Therapy Treatment Note [facility] Date: 09/28/2020 PRECAUTIONS: Activity as tolerated SUBJECTIVE: Gene is pleasant, although speech is difficult to comprehend as he displays significant facial deformity due to SCCA. He does agree to participating in PT, although stating that he believes he is being discharged to home later today. OBJECTIVE: PAIN: No c/o pain BED MOBILITY/TRANSFERS Sit-stand: SBA with verbal cues for hand placement Stand-sit: SBA with verbal cues for hand placement GAIT Assistive Device: FWW Weight bearing: Full Assist: SBA Distance: 100' x2 Deviation: Kyphotic, significant forward head posture, slow yoanna. THEREX: Patient was instructed in several UE and LE strengthening exercises, completed in a seated position, as per flow sheet. STAIRS: Up/down 6x4 and 4x6 using B rails and a step-to pattern with supervision TOILETING: Patient toileted with SBA for transfers ASSESSMENT: Patient tolerated session without complaint. He was able to tolerate the addition of stair training. He continues to demonstrate severe kyphosis and forward head posture with gait. PLAN: Continue with global strengthening and gait training, as tolerated. TREATMENT CODE/TIME: 45 minutes; 40560 x2, 16664 (13:45)
--- NOTE | 2020-09-28 15:10 | WOUNDCONS ---
- If Service Date Differs Date of service: 09/28/20 Time of Service: 15:10 Wound Initial Evaluation Narrative: Patient was approached, This nurse introduced himself and described what the wound team does here. Methods of three different treatment goals were described to the patient , He refused each offer stating ,I can't see it, it doesn't hurt, it doesn't bother me. One last attempt was made to offer patient service, he politely refused service. This was witnessed by Juan A Beach RN.
--- NOTE | 2020-09-28 15:30 | W.PM.PROGNOT ---
Date of Service Date of service: 09/28/20 Time of Service: 15:30 Assessment and Plan Assessment and plan (1) Metastatic squamous cell carcinoma to head and neck: Status: Acute Assessment and plan: C/s ENT for possible suggestions on dressings (2) Failure to thrive: Status: Acute Assessment and plan: At this point, this is no doubt related to above and EtOH abuse. C/s palliative care. (3) Elevated troponin: Status: Acute Assessment and plan: Likely due to dilated PORTABLE MACHINE SANDER. Cannot rule out arrhythmia at home or a PE, but the patient is not interested in the workup. D/c tele. (4) Dilated cardiomyopathy: Status: Chronic Assessment and plan: Patient is not interested in cardiac workup. Likely related to EtOH abuse. D/c tele. Patient not interested in echo. (5) DVT prophylaxis: Status: Acute Assessment and plan: Patient seems to be leaning towards palliative care. For this reason, will avoid chemical or mechanical DVT ppx, especially not knowing his current DVT status (6) Discharge planning issues: Status: Acute Assessment and plan: DNR/DNI Palliative care consulted. PT/OT consulted. The patient is not interested in aggressive workup of any of his medical conditions. He is interested in getting back on his feet and going back home. Subjective Subjective Interval history since last seen: I just want to get back on my feet and go home. Denies dizziness, chest pain, shortness of breath, nausea. He is taking in liquids with a syringe and is managing solids,per speech therapy. He is not interested in having a cardiac workup. He is not answering when I ask him about possible hospice. He refused using a communication board with me, and our interview is definitely impaired due to this because I do not always understand what Mr Valles is saying. Exam Narrative Exam Narrative: General: Frail middle-aged male, cachectic, appears older than his stated age; striking erosion of L side of the face with oral cavity visible. Absence of upper lip. HEENT: As above; L eye is barely visible, R eye EOM. Heart: RRR, mildly tachycardic, Lungs: CTAB Abdomen: soft, nontender, nondistended Extremities: +1 edema 1/[address] up B legs. Objective Last Vital Signs Temp 36.1 C L 09/28/20 08:44 Pulse 90 09/28/20 08:44 Resp 21 09/28/20 08:44 BP 148/86 H 09/28/20 08:44 Pulse Ox 97 09/28/20 08:44 Laboratory Results - last 24 hr 09/27/20 09/27/20 09/27/20 18:45 18:45 18:45 WBC 12.56 H RBC 3.63 L Hgb 11.1 L Hct 34.6 L MCV 95.3 H MCH 30.6 MCHC 32.1 RDW 13.5 Plt Count 116 L MPV 11.0 Immature Gran % 1.0 Neutrophils % 81.8 Lymphocytes % 8.0 Monocytes % 8.5 Eosinophils % 0.3 Basophils % 0.4 Nucleated RBC % 0 Absolute Neutrophils 10.27 H Absolute Lymphocytes 1.00 L Absolute Monocytes 1.07 H Absolute Eosinophils 0.04 Absolute Basophils 0.05 PT INR APTT D-Dimer Sodium 145 Potassium 3.3 L Chloride 107 Carbon Dioxide 27.9 Anion Gap 10.1 BUN 25 H Creatinine 1.2 Estimated GFR/1.73 m2 >= 60.00 Glucose 129 H Calcium 8.2 L Magnesium 2.2 Total Bilirubin 0.6 AST 21 ALT 11 L Alkaline Phosphatase 93 Ammonia 12 Troponin I 0.08 H* Total Protein 6.6 Albumin 2.3 L Ethyl Alcohol 3.4 COVID-19 Source SARS-CoV-2 (PCR) 09/27/20 09/27/20 09/28/20 21:15 21:55 07:10 WBC RBC Hgb Hct MCV MCH MCHC RDW Plt Count MPV Immature Gran % Neutrophils % Lymphocytes % Monocytes % Eosinophils % Basophils % Nucleated RBC % Absolute Neutrophils Absolute Lymphocytes Absolute Monocytes Absolute Eosinophils Absolute Basophils PT INR APTT D-Dimer Sodium 148 H Potassium 3.1 L Chloride 110 H Carbon Dioxide 28.1 Anion Gap 9.9 BUN 23 H Creatinine 0.9 Estimated GFR/1.73 m2 >= 60.00 Glucose 101 Calcium 8.1 L Magnesium Total Bilirubin AST ALT Alkaline Phosphatase Ammonia Troponin I 0.10 H* 0.16 H* Total Protein Albumin Ethyl Alcohol COVID-19 Source Nasal/Nares SARS-CoV-2 (PCR) Negative 09/28/20 09/28/20 09/28/20 07:10 12:08 12:08 WBC 11.76 H RBC 3.96 L Hgb 11.8 L Hct 37.0 L MCV 93.4 MCH 29.8 MCHC 31.9 L RDW 13.7 Plt Count 127 L MPV 11.5 H Immature Gran % Neutrophils % Lymphocytes % Monocytes % Eosinophils % Basophils % Nucleated RBC % Absolute Neutrophils Absolute Lymphocytes Absolute Monocytes Absolute Eosinophils Absolute Basophils PT 11.4 H INR 1.1 APTT D-Dimer > 7500 H Sodium Potassium Chloride Carbon Dioxide Anion Gap BUN Creatinine Estimated GFR/1.73 m2 Glucose Calcium Magnesium Total Bilirubin AST ALT Alkaline Phosphatase Ammonia Troponin I 0.13 H* Total Protein Albumin Ethyl Alcohol COVID-19 Source SARS-CoV-2 (PCR) 09/28/20 12:20 WBC RBC Hgb Hct MCV MCH MCHC RDW Plt Count MPV Immature Gran % Neutrophils % Lymphocytes % Monocytes % Eosinophils % Basophils % Nucleated RBC % Absolute Neutrophils Absolute Lymphocytes Absolute Monocytes Absolute Eosinophils Absolute Basophils PT INR APTT 25.4 D-Dimer Sodium Potassium Chloride Carbon Dioxide Anion Gap BUN Creatinine Estimated GFR/1.73 m2 Glucose Calcium Magnesium Total Bilirubin AST ALT Alkaline Phosphatase Ammonia Troponin I Total Protein Albumin Ethyl Alcohol COVID-19 Source SARS-CoV-2 (PCR)
--- NOTE | 2020-09-28 15:41 | W.NUTCONSULT ---
Date of service: 09/28/20 Time of Service: 15:41 Nutritional Consult ASSESSMENT: 60 year old male admitted with failure to thrive with hx of metastatic squamous cell carcinoma of head and neck with dysphagia, long hx of ETOH abuse, asicites due to liver failure, stage 4 sacral pressure wound. Per CLINICAL PSYCHOLOGIST PRIVATE PRACTICE consult, provide liquid nutrition that can be used with syringe for optimal intake. Gene reports using syringe at home to consume liquids. Current meal order regular with regular texture with good intake at lunch. Severe malnutrition in view of low weight, low body fat stores, increased nutrient needs, altered nutrient absorption. Meds include MVI, thiamine, folic acid for repletion Estimated Needs: 3571-1382 kcal, 75-90 g protein, 1800 ml fluid. NUTRITIONAL DIAGNOSIS: Severe malnutrition INTERVENTION: Provide soft bite sized foods and clear liquids supplement with ensure plus TID (provides 1080 kcal, 60 g protein) 1 oz liquid protein TID (provides 45 g protein) MONITORING AND EVALUATION: PO Intake, labs, weight, wound healing Time Spent in Nutritional Counseling and Treatment: 10
[2020-09-28 15:50] VITALS: PULSE 100
[2020-09-28 16:12] VITALS: BP 138/85; PULSE 98; RESP 19; TEMP 36; O2SAT 97
[2020-09-28] MEDS: POTASSIUM CHLORIDE 20 MEQ/100 ML BAG 25 MEQ IVPB (16:43)
[2020-09-29] MEDS: Lactated Ringers 1,000 ML 80 ML IV ×2 (05:01→18:10)
[2020-09-29 05:59] VITALS: BP 106/61; PULSE 123; RESP 22; TEMP 38.8; O2SAT 94
[2020-09-29 06:03] VITALS: TEMP 38.8
[2020-09-29] MEDS: ACETAMINOPHEN 1,000 MG/100 ML BTL 400 MG IVPB (06:03)
[2020-09-29 07:56] VITALS: BP 96/60; PULSE 106; RESP 18; TEMP 37.9; O2SAT 94
--- NOTE | 2020-09-29 09:03 | NUR.NOTE ---
Nursing Note:Charge nurse was notified this morning of patients 0700 VS, as well as him choking on PO meds that were crushed and put in pudding.
--- NOTE | 2020-09-29 09:25 | OT.INIE ---
Occupational Therapy Notes 09/29/20 OT attempted to see pt, consult was received and pts chart was reviewed. OT went in to evaluate pt and he was sitting in the bed. He has a large facial opening due to metastatic squamous cell carcinoma to head and neck. While OT was present pt denies the need for skilled Occupational Therapy services. He utilizes a syringe to drink his fluids which he is somewhat (I) with. OT attempted to evaluate pts functional (I) with his dressing and bathing and pt refuses. OT attempted to assess his strength and ROM and pt refused. He has difficulty with verbal communication and is hard to understand. OT did ask pt to write verbally to communicate which he refused. He denies the need for services, he denies performance of his ADLs. Due to pts refusal OT will discharge pt from skilled OT services at this time. I do feel that pt would benefit from services and recommend that he have HH if he returns home or LTC due to inability to care for himself and high risk for re-admission. OT was present with pt for 20 minutes. No charge for session. Jesika Nichols OTR/[facility]
--- NOTE | 2020-09-29 09:47 | NUR.NOTE ---
Nursing Note: pt is not able to swallow anything safely, I will not give any PO meds. Pts choked and coughed all of his meds this morning that were crushed and added to pudding, he was also choking on his free water that he was syringe feeding himself. Will continue to notify CC and .
--- NOTE | 2020-09-29 14:40 | PT.INTREAT ---
Date of service: 09/29/20 Time of Service: 10:15 PT Notes Visit Reasons: Failure to Thrive,Elevated Troponin,Alcoholism Inpatient Physical Therapy Treatment Note [facility] Date: 09/29/2020 PRECAUTIONS: Fall, severe facial deformity causing communication barrier SUBJECTIVE: Due to patient's severe facial deformity due to untreated SCCA, communication is limited and only about 25% can be understood today. He reports that he would like to get up to the bathroom. He is agreeable to protective barrier cream to be applied by nursing. He also indicates that he is agreeable to having his facial bandages changed. OBJECTIVE: PAIN: No c/o pain BED MOBILITY/TRANSFERS Supine-sit: I Sit-stand: SBA with verbal cueing for hand placement for safety Stand-sit: SBA with verbal cueing for hand placement for safety GAIT Assistive Device: FWW Weight bearing: Full Assist: SBA Distance: 20' x2 Deviation: Kyphosis, slow yoanna, severe forward head posture TOILETING: Patient toileted with assist ASSESSMENT: Patient demonstrates ability to transfer and ambulate short distances with FWW without assist. He refused further participation in PT today. He would benefit from continued PT for improved global strength. PLAN: Home with recommended HH PT follow-up versus comfort care. TREATMENT CODE/TIME: 30 minutes; 75381 x2 (10:15)
[2020-09-29 15:44] VITALS: BP 119/78; PULSE 96; RESP 18; TEMP 36.5; O2SAT 98
--- NOTE | 2020-09-29 17:00 | PGE_ITS ---
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 consulted palliative care and agree any care moving forward at this point would be futile, patient wants to go home and is agreeable to antibiotics oral. will discharge on oral cipro for 2 weeks. care management following and will discharge home with home health and palliative care consult. 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 Cannot rule out arrhythmia at home or a PE, but the patient is not interested in the workup. D/c tele. (4) Ascites due to alcoholic cirrhosis: Status: Acute (5) Dilated cardiomyopathy: Status: Chronic Assessment and plan: Patient is not interested in cardiac workup. Likely related to EtOH abuse. D/c tele. Patient not interested in echo. (6) Discharge planning issues: Status: Acute Assessment and plan: discharge to home with home health services and palliative/hospice consult. discussed with Dr Caballero Subjective Subjective Patient reports: no new complaints, feels better and afebrile; denies shortness of breath Exam Const General: disheveled, frail appearing and ill appearing chronically Orientation: alert and oriented x3 HENMT Head: abnormal to inspection General nose exam: other (gross deformity and necrosis of the face from advanced untreated mets squam) Face and sinus: abnormal facial exam Mouth: abnormal oral mucosae and other (deformity of mouth from mets squamous cell ca) Eyes Pupils: PERRL Resp Effort & Inspection: normal respiratory effort Cardio Rate: tachycardic Rhythm: regular rhythm GI Inspection: normal to inspection Neuro General: patient alert and patient oriented x3 Objective Last Vital Signs Temp 36.5 C 09/29/20 15:44 Pulse 96 H 09/29/20 15:44 Resp 18 09/29/20 15:44 BP 119/78 09/29/20 15:44 Pulse Ox 98 09/29/20 15:44
--- NOTE | 2020-09-29 17:01 | PDOC.CMPRO ---
- If Service Date Differs Date of service: 09/29/20 Time of Service: 17:02 Care Management Progress Note S/O:Reuben was sitting up in a chair when CM met with him. He has asked the providers to discharge him. He also asked that his sister be contacted to provide transportation. CM contacted his sister, Shweta Fernández (home) or (cell) who verbally agreed to serve as reuben's DPOA for healthcare as well as to provide transportation when he is discharged. The plan is for Reuben to go home tomorrow and for services to begin on . A: Reuben is a 66 year old man admitted on 09/27/20 with failure to thrive and elevated troponins P:Reuben will be discharged home with new home health services for nursing and PT. He will follow up with his community providers and plan of care and transport with his sister.CM will continue to support Reuben and his family and assess for discharge planning needs.
--- NOTE | 2020-09-29 18:00 | PT.INDS ---
Date of service: 10/01/20 Time of Service: 08:44 PT Notes Visit Reasons: Failure to Thrive,Elevated Troponin,Alcoholism Physical Therapy Inpatient Discharge Summary Date: 09/29/2020 Dates of Service: 09/28/2020 through 09/29/2020 This is a clinical summary of care provided for the duration of dates listed above. No charge was made in the completion of this documentation. Referring Doctor: Arabella Caballero MD PT Orders: PT CONSULT: Limited ability Precautions: Fall. Standard. Activity as tolerated. Patient Profile/Admitting Diagnosis: Gene is a 60-year-old male with past medical history significant for EtOH abuse, dilated cardiomyopathy, and profoundly destructive facial squamous cell carcinoma who presented to the ED on 09/27/2020 for generalized weakness and decreased ability to care for self. Patient is diagnosed with adult failure to thrive, hypokalemia and leukocytosis. PMHx: Medical History Alcohol abuse CAD (coronary artery disease) Cirrhosis Edema extremities Hyponatremia Sacral decubitus ulcer, stage IV Social History/Home Situation: Lives alone in an apartment with 20 steps to enter, rails on B sides. He states that he does not have a car and walks to places he needs to like the grocery store. He did not use any device although he states he has a FWW. Equipment Owned/DME: FWW Subjective: NT. See most recent UTILIZATION MANAGEMENT MANAGER notes. Objective: General Observation: NT. See most recent UTILIZATION MANAGEMENT MANAGER notes. Mental Status: NT. See most recent UTILIZATION MANAGEMENT MANAGER notes. Pain: NT. See most recent UTILIZATION MANAGEMENT MANAGER notes. ROM: Right Upper Extremity: Shoulder Flexion allows up to 90 degrees only. Shoulder abduction allows up to 90 degrees only. Elbow flexion WFL. Wrist flexion WFL. Functional opening and closing of hand WFL. Left Upper Extremity: Shoulder Flexion allows up to 90 degrees only. Shoulder abduction allows up to 90 degrees only. Elbow flexion WFL. Wrist flexion WFL. Functional opening and closing of hand WFL. Right Lower Extremity: Hip flexion WFL. Hip abduction WFL. Knee flexion WFL. Knee extension -10 degrees. dorsiflexion WFL. Ankle plantarflexion WFL. Left Lower Extremity: Hip flexion WFL. Hip abduction WFL. Knee flexion WFL. Knee extension -10 degrees. Ankle dorsiflexion WFL. Ankle plantarflexion WFL. Strength: Right Upper Extremity: Shoulder flexors 3-/5. Shoulder abductors 3-/5. Elbow flexors 4-/5. Elbow extensors 3+/5. Supervisor Newspaper Deliveries strong. Left Upper Extremity: Shoulder flexors 3-/5. Shoulder abductors 3-/5. Elbow flexors 4-/5. Elbow extensors 3+/5. Supervisor [employer] strong. Right Lower Extremity: Hip flexors 4-/5. Hip abductors 4-/5. Knee flexors 4-/5. Knee extensors 3-/5. Ankle dorsiflexors 4-/5. Ankle plantarflexors 4/5. Left Lower Extremity: Hip flexors 4-/5. Hip abductors 4-/5. Knee flexors 4-/5. Knee extensors 33-/5. Ankle dorsiflexors 4-/5. Ankle plantarflexors 4/5. Bed Mobility/Transfers: Supine to sit with standby assist with HOB 30 degrees Sit to stand with contact-guard assist Stand to sit with contact-guard assist Bed to toilet seat with contact-guard assist. Assisted with toileting x 2. Reclining chair to bed with contact-guard assist Gait: Instructed patient with level surface ambulation of 250 feet requiring contact-guard assist. Maria A decreased. Step height decreased. Step length decreased. Severe forward head posture. Kyphoscoliotic. Balance: Static Sitting: Normal Dynamic Sitting: Normal Static Standing: Fair Dynamic Standing: Fair Special Tests: Mobility Limitations Standardized Measure [facility] AM-PAC 6 clicks Basic Mobility Inpatient Short Form: Raw Score: 19 CMS Score: 42% deficit Informed Consent/Education: Patient was instructed in purpose of PT consult and plan of care. Agreeable to proceed with established PT POC to achieve personal goals. Assessment: Gene demonstrates functional mobility decline requiring the use of a front wheeled walker for mobility for all mobility ADL performance. Lives alone and has 20 steps to get into his apartment. His kyphoscoliosis increases risk for falls forward he will benefit from same AD. Patient contiues to present with clinical signs and symptoms consistent with current/admitting diagnoses that have resulted to mobility limitations, gait instability, generalized weakness, and overall ADL decline as demonstrated by the following impairment level findings: 1. Decreased strength to B UE/LE major muscle groups 2. Impaired standing balance 3. Impaired activity tolerance 4. Limitation of joint range of motion in B shoulders and knees 5. Shortness of breath 6. Swelling on R LE 7. L leg atrophic 8. Kyphoscoliosis Impairments are continuing to contributing to the following functional limitations: 1. Decline in transfer skills 2. Difficulty with ambulation without assistive device 3. Increased completion time for mobility ADL performance 4. Increased risk for falls 5. Difficulty with managing steps alone safely Goals: Goals X1 week 1. Supine-Sit independent MET 2. Sit-Supine independent MET 3. Sit-Stand independent NOT MET 4. Stand-Sit independent with front-wheeled walker NOT MET 5. Bed-Chair independent with front-wheeled walker NOT MET 6. Chair-Bed independent with front-wheeled walker NOT MET 7. Independent gait on level surface with use of front wheeled walker for at least 500 feet without report of pain nor dyspnea NOT MET 8. Independent stair negotiation while holding onto B rails for at least 20 steps without report of pain nor dyspnea NOT MET 9. Independent with home exercise program NOT MET 10. Good static and dynamic standing balance/tolerance NOT MET DISCHARGE RECOMMENDATIONS: Patient will benefit from home health PT services in order to progress mobility level using least restrictive assistive ambulatory device, assess home safety, identify additional equipment needs, and establish a functional maintenance program that will increase ability of patient to remain at home. TREATMENT CODE/TIME: TN Thank you for the opportunity to participate in the care of this patient. Marylu Kim PT, DPT, CLT [facility] [place], [place]
[2020-09-29] MEDS: Amoxicillin 400 MG/Clav. 57 MG 100 ML BTL 10 ML PO (22:15)
[2020-09-29 23:38] VITALS: BP 115/68; PULSE 94; RESP 20; TEMP 36.8; O2SAT 96
[2020-09-30] MEDS: Lactated Ringers 1,000 ML 80 ML IV (06:49)
[2020-09-30 08:02] VITALS: BP 164/79; PULSE 116; RESP 22; TEMP 38.9; O2SAT 92
[2020-09-30] MEDS: Amoxicillin 400 MG/Clav. 57 MG 100 ML BTL 10 ML PO (08:23)
--- NOTE | 2020-09-30 10:24 | DSE_ITS ---
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: Status: Acute (2) Failure to thrive: Status: Acute (3) Elevated troponin: Status: Acute (4) Ascites due to alcoholic cirrhosis: Status: Acute (5) Dilated cardiomyopathy: Status: Chronic Discharge Plan Disposition Patient Disposition: HOME W/HOME HEALTH SERVICE Condition: Poor Discharge Details Reason For Visit: Failure to Thrive,Elevated Troponin,Alcoholism Admit Date/Time: 09/27/20 23:27 Admit Provider: Misha Echevarria Attending Provider: iMsha Echevarria Primary Care Provider: Gurvinder Denis Hospital Course Hospital Course: This is a 60 year old male with alcoholism, dilated cardiomyopathy and profoundly destructive facial squamous cell carcimona of the face and neck who presented to the ED for generalized weakness. Work up in the ED shows dishevelment, cachexia and patient soaked in urine. Lab of note for white count 12, K 3.3, trop 0.08 then 0.10 (note prior h/o elevated trop with no evidence ACS), EKG with old septal q waves, no acute ischemic changes, and negative CXR, and head and neck CT (other than destructive lesion left face). Due to elevated troponin, along with manifest inability to care for self, he was admitted to hospital services for further evaluation and management. He received a palliative care consult and he has refused many options such as wound care, evaluation of his cardiac condition, help offered by nursing (reapply bandaids to hold his lips together) and other simple interventions. Per palliative consult: he understands that is a likely consequence of not getting the appropriate medical work up and care. He has capacity and does not want this care. It is agreed that partial medical interventions are unlikely to improve his health and are futile. He wants to return home and is willing to continue oral antibiotics at this time. He will be placed on oral ciprofloxacin and discharged to home with home health services and palliative/hospice consult. discharge discussed with Dr Caballero Home Meds and New Rx's Prescriptions: New ciprofloxacin [Cipro] 500 mg/5 mL suspension,microcapsule recon 500 mg PO BID Qty: 200 RF: 0 acetaminophen 650 mg/20.3 mL suspension 650 mg PO Q4H PRNQty: 609 RF: 0 ibuprofen 100 mg/5 mL suspension 200 mg PO Q6H PRNQty: 120 RF: 0 Discharge Instructions Instructions: Aspiration Pneumonia (DC) Stand Alone Forms: Nursing Discharge Form Referrals: Petros Guerrero MD [ [facility] STAFF PHYSICIAN] - 10/09/20 1:15 pm Activity:: Activity as Tolerated Equipment/Supplies:: No Equipment Needed Diet:: liquid diet via syringe as tolerated Discharge Orders Discharge Orders: Discharge Order (Routine); Ordered 09/30/20 Ordered By: Kelsey Beach DS: Summary Time Spent with Patient providing and/or coordinating discharge services: Greater than 30 minutes Status at Discharge Functional status at discharge: uses cane/walker Overall status at discharge: patient is progressing back to baseline Mental Status: mental status grossly normal Speech and Movement: other (difficult to understand d/t gross deformity of mouth) Mood: congruent mood Affect: normal affect Exam Const General: disheveled, frail appearing and ill appearing chronically Orientation: alert and oriented x3 HENMT Head: abnormal to inspection General nose exam: other (gross deformity and necrosis of the face from advanced untreated mets squam) Face and sinus: abnormal facial exam Mouth: abnormal oral mucosae and other (deformity of mouth from mets squamous cell ca) Eyes Pupils: PERRL Resp Effort & Inspection: normal respiratory effort Cardio Rate: tachycardic Rhythm: regular rhythm GI Inspection: normal to inspection Neuro General: patient alert and patient oriented x3 Psych Mental Status: mental status grossly normal Speech and Movement: other (difficult to understand d/t gross deformity of mouth) Mood: congruent mood Affect: normal affect DS: Data Vitals/I&O Vitals and I&O: Vital Signs Temperature 38.9 C H 09/30/20 08:02 Temperature Source Tympanic 09/30/20 08:02 Pulse 116 H 09/30/20 08:02 Pulse Rhythm Regular 09/30/20 09:14 Respiratory Rate 22 09/30/20 08:02 Respiratory Effort Non-Labored 09/30/20 09:14 Respiratory Depth Normal 09/30/20 09:14 Respiratory Pattern Normal 09/30/20 09:14 Blood Pressure 164/79 H 09/30/20 08:02 Pulse Oximetry 92 09/30/20 08:02 Oxygen Delivery Method Room Air 09/30/20 08:02 Oxygen Flow Rate 0 09/30/20 08:02 Pain Level 0 09/29/20 23:38 Intake & Output 09/29/20 09/29/20 09/30/20 11:59 23:59 11:59 Intake Total 1122.667 / 2142.667 1020 / 2142.667 1297.333 / 1297.333 Output Total 600 / 600 Balance 1122.667 / 1542.667 420 / 2942.656 2793.333 / 1297.333 Intake: IV 1082.667 / 2082.667 1000 / 2082.667 1197.333 / 1197.333 Oral 40 / 60 20 / 60 100 / 100 Output: Urine 600 / 600 Other: Urine Color Yellow Straw Urine Appearance Clear Clear Clear Urine Odor Normal Comment pt is incontinent; unable to obtain urine sample pt checked for incontienence and was dry Pt checked for incontinence and was dry, also no BM. Pt refused bladder scan despite education. Charge nurse notified. Stool Size Large Stool Characteristics Soft Formed Brown Voiding Methods Urinal Toilet Data Completed and Pending Labs on day of discharge: Preliminary micro results at discharge 09/28/20 12:08 Blood Culture - Preliminary Blood Staphylococcus Aureus 09/28/20 11:55 Blood Culture - Preliminary Blood Staphylococcus Aureus [facility] Medical History Alcohol abuse CAD (coronary artery disease) Cirrhosis Edema extremities Hyponatremia Sacral decubitus ulcer, stage IV Social History Smoking/Tobacco Use Status: Current every day Smoking risk assessment performed?: Yes Drug use: Never Do you feel safe in your relationship?: Yes
--- NOTE | 2020-09-30 10:49 | PDOC.HHF2F ---
Home Health Certification Home Health Certification: 1. Encounter Date and Reason I certify that Reuben Valles was seen by Kelsey Beach on 09/30/20 and that I had a [id number] encounter with this patient that meets the physician face to face encounter requirements. 2. Clinical Findings Supporting Skilled Need and Homebound Status I certify that home health services are medically necessary, include either intermittent alf and/or physical/speech therapy, and that this patient is homebound in that absences from the home require considerable and taxing effort and are infrequent or of short duration, or are attributable to the need to receive medical care. [X] (a) Attached documentation from encounter provides clinical findings supporting skilled need and homebound status (including what assistance patient requires to leave the home). The encounter with the patient was in whole, or in part, for the following medical condition, which is the primary reason for home health care: Failure to thrive, elevated troponin, alcoholism, aspiration pneumonia Mcc: routine nursing evaluation and management Physical and Occupational Therapy: routine evaluation and treatment Speech Therapy: routine evaluation and management CORONER FORENSIC TECHNICIAN: routine management Homebound: patient unable to safely leave the house unassisted 3. Certification and Authentication I certify that I composed the above information based on my clinical judgment relating to this patient's medical condition and, if applicable, clinical findings communicated to me by the NPP or inpatient physician who performed the Home Health Referral. All further orders will be obtained through Gurvinder Denis MD_(Community Based Physician - PCP)
--- NOTE | 2020-09-30 11:51 | PDOC.CMDIS ---
- If Service Date Differs Date of service: 09/30/20 Time of Service: 11:51 LACE Index Scoring Tool - Questions: Length of Stay (in days): 3 Acuity (Admit via E.D.?): Yes Comorbidities: Previous M.I., Metastatic Solid Tumor E.D. 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 It was recommended to Reuben that he remain in the hospital for comfort care as he was not interested in treatment, but he refused. Cinthya tillman stated to the provider, his nurse, the CC, his sister and CM that he does not want to stay in the hospital and that he wants to go home. His sister expressed concern about the safety of the discharge plan, but Reuben was adamant about his decision. Shweta will transport him home in her car. She was advised to call the local [facility] for a lift assist if unable to get him up the stairs and into his apartment. Patient/Family Education Needs: Review of discharge instructions, medications, limitations, Follow up plan, Ask Me Three Services Needed at Discharge: Home Health Care Services
--- NOTE | 2020-09-30 13:34 | NUR.NOTE ---
Nursing Note: Sister here to take pt home. She is very concerned that pt will not be able to care for himself and has no food or phone in the house. Informed that pt has been offered physical care that he has refused. He has been offered Palliative and Comfort Care but has also refused. Has refused to stay in the hospital for care. She is also concerned that he has a long flight of stairs and he had difficulty getting into the car. Marketing Producer Lucinda informed her that PT has cleared the pt on stairs, and that a lift assist from the fire department is also available if needed. Pt has also been offered nursing facility but has also refused this. Advised that if pt changes his mind, they can certainly return to the emergency room. Addressed this again with the pt and he assures me that he still wants to go home and does not want to stay at the hospital. Nursing Note: Initialized on 09/30/20 11:44
== END 2020-09-30 11:15 | disposition home health service (06) | DRG 606 ==
LOC: ER 09-28 00:09 → MS 09-28 00:53
PROVIDERS: Internal Medicine; Admitting Provider General Practice; Emergency Provider Physician Assistant; PCP Internal Medicine; Visit Provider General Practice
DX: C44.329 Squamous cell carcinoma of skin of other parts of face (principal); L89.154 Pressure ulcer of sacral region, stage 4; E87.1 Hypo-osmolality and hyponatremia; R64 Cachexia; C79.89 Secondary malignant neoplasm of other specified sites; I42.0 Dilated cardiomyopathy; R74.8 Abnormal levels of other serum enzymes; Z51.5 Encounter for palliative care; E87.6 Hypokalemia; D72.829 Elevated white blood cell count, unspecified; F10.20 Alcohol dependence, uncomplicated; I25.10 Atherosclerotic heart disease of native coronary artery without angina pectoris; F17.210 Nicotine dependence, cigarettes, uncomplicated; Z20.822 Contact with and (suspected) exposure to COVID-19; Z66 Do not resuscitate; Z68.22 Body mass index [BMI] 22.0-22.9, adult; R62.7 Adult failure to thrive; K70.31 Alcoholic cirrhosis of liver with ascites
CPT/HCPCS: 36415; 70491; 80048; 80053; 85027; 87040; 87077; 87635; 93005; 96360; 96361; 97110; 97162; 97530; 99285; 70450; 71046; 80320; 82140; 83735; 84484; 85025; 85379; 85610; 85730; 87186; 93010; 99222; 99233; 99239; 99284; J0131; J3480; J3490

== ENCOUNTER 2020-09-30 13:25 | Inpatient (IN) | payer MEDICARE, MEDICAID, SELFPAY ==
[2020-09-30 13:37] VITALS: BP 97/54; PULSE 137; RESP 33; TEMP 39.7; O2SAT 91
--- NOTE | 2020-09-30 14:18 | NUR.NOTE ---
pt seen in bed and discussed plan of care with pt's sister and nursing staff, pt is initially not agreeable to hospitalization or treatment, will continue to monitor and maintain safety.
--- NOTE | 2020-09-30 14:34 | W.PM.HP.N ---
Date of service: 09/30/20 Time of Service: 14:34 Assessment and Plan Assessment and plan (1) Staphylococcus aureus bacteremia with sepsis: Status: Acute Assessment and plan: patient declines antibiotics, this will likely result in his in 1-2 days. Palliative was consulted on previous admission and partial care (he was declining most interventions) will be futile, he is DNR/DNI will be referred to SB 2 for comfort care. 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 admitted here comfort care case management following discussed with DR anand History of Present Illness History of Present Illness Chief Complaint: failure to discharge Narrative: this is a 60 year old male with history of metastatic squamous cell carcinoma of the face and neck leaving him severely deformed who presented to the ED a few days ago, admitted for failure to thrive, suspected aspiration pneumonia, growing staph in both blood cultures who was seen by palliative care as he was refusing most treatment. his goal was to return home, he was originally agreeable to oral antibiotics. it was agreed upon that any partial care would be futile. He was transported home by his sister and she was unable to leave him so called 911 to bring him back. in the ED he is now agreeable to stay here for end of life care. he declines antibiotics or any other treatment at this time. he wants to be admitted here for comfort care only. hospitalist services is contacted and will admit him SB2. care management will be following. Review of Systems All systems reviewed & are unremarkable except as noted in HPI and below PFSH Medical History Alcohol abuse CAD (coronary artery disease) Cirrhosis Edema extremities Hyponatremia Sacral decubitus ulcer, stage IV Social History Smoking/Tobacco Use Status: Current every day Smoking risk assessment performed?: Yes Drug use: Never Additional Social history: pt appears unable to take care of self at home. Meds Allergies and Home Medications Allergies Allergy/AdvReac Type Severity Reaction Status Date / Time No Known Allergies Allergy Unverified 08/26/16 10:08 Home Medications Medication Instructions Recorded Confirmed Type acetaminophen 650 mg PO Q4H PRN #609 ml 09/30/20 Rx ciprofloxacin [Cipro] 500 mg PO BID #200 ml 09/30/20 Rx ibuprofen 200 mg PO Q6H PRN #120 ml 09/30/20 Rx Exam Narrative Exam Narrative: Const General: disheveled, frail appearing and ill appearing chronically Orientation: alert and oriented x3 HENMT Head: abnormal to inspection General nose exam: other (gross deformity and necrosis of the face from advanced untreated mets squam) Face and sinus: abnormal facial exam Mouth: abnormal oral mucosae and other (deformity of mouth from mets squamous cell ca) Eyes Pupils: PERRL Resp Effort & Inspection: normal respiratory effort Cardio Rate: tachycardic Rhythm: regular rhythm GI Inspection: normal to inspection Neuro General: patient alert and patient oriented x3 Psych Mental Status: mental status grossly normal Speech and Movement: other (difficult to understand d/t gross deformity of mouth) Mood: congruent mood Affect: normal affect Results Last Vital Signs Temp 39.7 C H 09/30/20 13:37 Pulse 137 H 09/30/20 13:37 Resp 33 H 09/30/20 13:37 BP 97/54 L 09/30/20 13:37 Pulse Ox 91 L 09/30/20 13:37
[2020-09-30 15:53] LABS: COVID-19 PCR Negative (Negative)
--- NOTE | 2020-09-30 15:58 | ED.GENADUL_ITS ---
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 Patient was recently admitted for sepsis, treated with antibiotics, patient left against medical recommendations, and refused all care at the hospital, refused placement, and wanted to just go home. Unfortunately within 2 hours after discharge at home patient, who is been under the care of his sister, demonstrated notable inability to manage his activities of daily living, and upon pleading with her came back to [facility] to accept the previous recommendations of potential placement and comfort care management. At this time patient does clearly state that he would like to be made inpatient and would like to be admitted for help with bathing and feeding, however he also makes it unequivocally clear that he does not want anything else, including tests, medications, treatment or therapy. No other complaints at this time. No other modifying factors that the patient is willing to discuss. Sister is at bedside, case management is at bedside. At the onset of the patient's arrival I will involve case management and the patient's sister. I had a long discussion with the patient made it very clear that if he went home he would be unable to care for himself, and he would likely in a very negative environment, as he would be unable to bathe himself, care for his defecation and urination needs, and also be unable to feed himself. After a long discussion with all involved parties the patient agreed to be admitted for continued chronic care, but made it extremely clear that he did not want any treatment, medications, tests, or anything else at this time. There is made clear that excepting these medications or treatments would be beneficial for his life and he understands that and continues to refuse. I did contact the hospitalist Dr. Caballero she agrees accepts the patient for admission for comfort measures only. I have extensively reviewed the treatment plan with the patient. I have addressed all patient concerns at this time. I have also discussed the plan with the admitting physician and they agree with the current assessment and plan and have agreed to assume responsibility for the patient. All parties demonstrate verbal understanding and agreement with our assessment and plan at this time. The documentation in this chart was dictated using [employer] dictation software. Please excuse any dictation errors. HPI General Date/Time Provider Initiated Documentation: 09/30/20 13:36 . 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 Patient was recently admitted for sepsis, treated with antibiotics, patient left against medical recommendations, and refused all care at the hospital, refused placement, and wanted to just go home. Unfortunately within 2 hours after discharge at home patient, who is been under the care of his sister, demonstrated notable inability to manage his activities of daily living, and upon pleading with her came back to [facility] to accept the previous recommendations of potential placement and comfort care management. At this time patient does clearly state that he would like to be made inpatient and would like to be admitted for help with bathing and feeding, however he also makes it unequivocally clear that he does not want anything else, including tests, medications, treatment or therapy. No other complaints at this time. No other modifying factors that the patient is willing to discuss. Sister is at bedside, case management is at bedside. Related Data Home Medications Medication Instructions Recorded Confirmed acetaminophen 650 mg PO Q4H PRN #609 ml 09/30/20 09/30/20 ciprofloxacin [Cipro] 500 mg PO BID #200 ml 09/30/20 09/30/20 ibuprofen 200 mg PO Q6H PRN #120 ml 09/30/20 09/30/20 Previous Rx's Medication Instructions Recorded acetaminophen 650 mg PO Q4H PRN #609 ml 09/30/20 ciprofloxacin [Cipro] 500 mg PO BID #200 ml 09/30/20 ibuprofen 200 mg PO Q6H PRN #120 ml 09/30/20 Allergies Allergy/AdvReac Type Severity Reaction Status Date / Time No Known Allergies Allergy Unverified 08/26/16 10:08 General Stated Complaint: FacialProb YAZMIN: 2 Review of Systems All systems reviewed & are unremarkable except as noted in HPI and below PFSH Medical History Alcohol abuse CAD (coronary artery disease) Cirrhosis Edema extremities Hyponatremia Sacral decubitus ulcer, stage IV Social History Smoking/Tobacco Use Status: Current every day Smoking risk assessment performed?: Yes Drug use: Never Additional Social history: pt appears unable to take care of self at home. Exam Narrative Exam Narrative: 1.Const: Well-nourished, Well-developed, appearing stated age 2.Eyes: Please see ENT 3.ENT: Severe debilitating cavitating lesion on the left side of his face 4.CVS: +S1/S2, No murmurs or gallops. Peripheral pulses 2+ and equal in all extremities. Brisk capillary refill in all extremities. 5.RESP: Unlabored respiratory effort. 6.GI: Soft, Nontender/Nondistended 7.MSK: Normocephalic/Atraumatic, Extremities w/o deformity or ttp No cyanosis or clubbing, Normal movement of all extremities 8.Skin: Please see ENT Psych: Patient is ANO, able to respond to all questions with yes and no answers and speech. He demonstrates understanding of the current scenario. Course Vital Signs Vital signs: Vital Signs Temperature 39.7 C H 09/30/20 13:37 Pulse 137 H 09/30/20 13:37 Respiratory Rate 33 H 09/30/20 13:37 Blood Pressure 97/54 L 09/30/20 13:37 Pulse Oximetry 91 L 09/30/20 13:37 Temperature 39.7 C H 09/30/20 13:37 Temperature Source Axillary 09/30/20 13:37 Pulse 137 H 09/30/20 13:37 Respiratory Rate 33 H 09/30/20 13:37 Respiratory Effort Incrsd Work of Breathing 09/30/20 13:50 Blood Pressure 97/54 L 09/30/20 13:37 Blood Pressure Position Sitting 09/30/20 13:37 Pulse Oximetry 91 L 09/30/20 13:37 Oxygen Delivery Method Room Air 09/30/20 13:37 Oxygen Flow Rate 0 09/30/20 13:37 Pain Level 10 09/30/20 13:37
--- NOTE | 2020-09-30 16:01 | CHAPLAIN ---
Reuben returned shortly after he was discharged today and in the ED agreed to stay for end of life care. He has cancer of the neck and head, his face is very disfigured. His sister, who lives in [place], picked him up to take him home today to where he lives in [place], but when they got there, she decided she couldn't leave him there alone and called 911. His sister had not seen Reuben for a couple of years. He has not sought any care since his diagnosis, according others' notes. He had trouble swallowing oral pain meds, so he as asked if he would agree to a subq pain pump. Reuben's sister said she would stay until that is in place. I will continue to visit to support Reuben and his sister.
--- NOTE | 2020-09-30 17:43 | NUR.NOTE ---
Pt was offered pain medications and patient shook his head no. Will reassess at a later time. Pt was oriented to call light. Nursing Note:
--- NOTE | 2020-09-30 18:36 | CMSA_ITS ---
- If Service Date Differs Date of service: 09/30/20 Time of Service: 18:36 SB Psychosocial/Act.Assessment - Hospital Admission Admission Date: 09/30/20 Admission From:: ED - Social Supports PREVIOUS FUNCTIONAL STATUS/SOCIAL/FAMILY SUPPORTS:: Reuben lives alone in an apartment in [place], [place] He has a daughter and a son who live in [facility]. He does not maintain a relationship with either one. His daughter stopped communicating with him 3 years ago as his life choices were a barrier to his well being and their relationship. His son has substance use issues and is in and out of fci and rehab and so, is unavailable. Reuben also has a sister Shweta who has recently reconnected with him. Reuben is very weak and frail however he does not receive any community services. - Medical History PAST MEDICAL HISTORY/PAST SURGICAL HISTORY:: Medical History . Alcohol abuse. CAD (coronary artery disease). Cirrhosis. Edema extremities. Hyponatremia. Sacral decubitus ulcer, stage IV
--- NOTE | 2020-09-30 18:39 | CM.SWINGPC ---
- If Service Date Differs Date of service: 09/30/20 Time of Service: 18:39 Swingbed Plan of Care Plan of care: SWING BED PROGRAM ACTIVITIES/DISCHARGE PLAN OF CARE ACTIVITIES PLAN Date: Identified Need: Intervention/Plan: Initials DISCHARGE PLAN Date: Identified Need: Intervention/Plan: Initials
--- NOTE | 2020-10-01 12:09 | CM.SBPSYCH ---
- If Service Date Differs Date of service: 10/01/20 Time of Service: 12:09 SB Psychosocial/Act.Assessment - Hospital Admission Admission Date: 09/30/20 Admission From:: Admission from home same day as hospital discharge as patients wishes changed. Diagnosis:: End of Life Care - Swing Bed Admission Swing Bed Admit Date:: 09/30/20 Swing Bed Level of Care: Level 1/SNF - Social Supports PREVIOUS FUNCTIONAL STATUS/SOCIAL/FAMILY SUPPORTS:: Reuben lives alone in an apartment in [place], [place] He has a daughter and a son who live in [facility]. Reuben also has a sister Shweta who has recently reconnected with him. The plan was for Reuben to discharge to home with new HH services per his wishes. Shortly after returning home with the support of his sister Reuben was agreeable to return to [facility] for end of life care. - Prior to Admission Living Arrangements/Environment Prior to Admission:: Reuben previously lived alone at his appartment in [place] without community or services. 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 - Talmage: No Talmage's Spouse: No - Benefits Financial: Medicare (Primary), Medicaid - Advance Directives for Healthcare Advance Directives for Healthcare: Advance Directives (COLST) Advance Directive Agent: Alee Fernández - Present Functional Status Physical Abilities:: Ambulates independently with standby assist. Due to disease process oral intake is a challenge requiring syringe. Patient self manages. Cognitive:: Intact Communication:: Garbled speech often nods yes or no to communicate. Behavior:: Appropriate - Medical History PAST MEDICAL HISTORY/PAST SURGICAL HISTORY:: Medical History . 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 Alcohol abuse. CAD (coronary artery disease). Cirrhosis. Edema extremities. Hyponatremia. Sacral decubitus ulcer, stage IV General Health:: Poor - Admission Data Reason for Swing Bed Admission:: End of life care for metastatic squamous cell carcinoma to head and neck Discharge Plan:: Anticipate Reuben will remain at [facility] until he is . Assessment: Reuben is SWB1 for skilled end of life care. Desk Top Publisher: Catie Soriano RN Date Assessment was completed:: 10/01/20
--- NOTE | 2020-10-01 13:48 | CHAPLAIN ---
I was called by Med/Surg staff early this morning to come in and be with Reuben's daughter who was arriving to see if, for the first time in 3 years. She had been trying to help her dad, but he would not go to see a doctor, and resisted any kind of assistance, she said. This made it difficult for her to continue to visit and help him. She was very straight forward with her dad. He asked her to take him home and she told him he would not being going home because he can't take care of himself. She said she was able to say what she needed to say to him and she was grateful to have hear him say that he missed her and loved here. Reuben was readmitted yesterday after being home for less than two hours. His sister, who hadn't seen him in two years, took him home, but then called 911 to bring him back to [facility]. 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 His face is disfigured from the cancer, his nose is mostly gone, and it is difficult to understand his speech. His daughter is appreciative of the care he is receiving and said she won't likely be back. She may call for updates.
--- NOTE | 2020-10-01 15:33 | CM.SWINGPC ---
- If Service Date Differs Date of service: 10/01/20 Time of Service: 15:33 Swingbed Plan of Care Plan of care: SWING BED PROGRAM ACTIVITIES/DISCHARGE PLAN OF CARE ACTIVITIES PLAN Date: 09/30/20 Identified Need: Life enrichment during extended hospitalization Intervention/Plan: TV in room (remote within reach), Telephone in room, visit with family, offer activity cart, music therapy when available. Offer food or drink to patients preferences when able. Initials HEIDI DISCHARGE PLAN Date: 09/30/20 Identified Need: End of life care Intervention/Plan: Monitor and treat pain management as appropriate, Determine arrangements, Respect patients wishes during the dying process Initials DL
[2020-10-01] MEDS: fentaNYL 12 MCG PATCH TD (16:05)
--- NOTE | 2020-10-02 09:37 | W.PALLCONSUL ---
Date of service: 10/02/20 Time of Service: 08:37 History of Present Illness History of Present Illness Chief Complaint: end of life care Narrative: From H and P History of Present Illness History of Present Illness Chief Complaint: failure to discharge Narrative: this is a 60 year old male with history of metastatic squamous cell carcinoma of the face and neck leaving him severely deformed who presented to the ED a few days ago, admitted for failure to thrive, suspected aspiration pneumonia, growing staph in both blood cultures who was seen by palliative care as he was refusing most treatment. his goal was to return home, he was originally agreeable to oral antibiotics. it was agreed upon that any partial care would be futile. He was transported home by his sister and she was unable to leave him so called 911 to bring him back. in the ED he is now agreeable to stay here for end of life care. he declines antibiotics or any other treatment at this time. he wants to be admitted here for comfort care only. hospitalist services is contacted and will admit him SB2. care management will be following. I am seeing Reuben for end-of-life care. I did see him earlier this week. At that time all he wanted to do was to go home. Staff was concerned about his pain level and whether or not he needed to be on IV morphine. It is difficult for him to swallow because large parts of his face are missing secondary to squamous cell cancer Luly states that he is presently getting oral morphine and it seems to be working fine. He tells me that he is not in pain at this time and that his pain needs are well controlled. He did say that his sister plans to take him home. According to his sister this is not true. Assessment and Plan Assessment and plan (1) Adult failure to thrive: Status: Acute (2) Staphylococcus aureus bacteremia with sepsis: Status: Acute (3) Admission for end of life care: Status: Acute (4) Palliative care patient: Status: Acute Assessment and plan: Reuben does not want any interventions other than pain control. His pain at this time seems to be adequately controlled. I did speak to WALLACE Cole and she will be certain to check in with patient to make certain that his pain needs are well controlled. He had completed a COLST form prior to this admission. He is a DNR/DNI. He has refused care on his buttocks wound and for his squamous cell cancer. Review of Systems Narrative: He states that everything else is okay. [facility] Medical History Alcohol abuse CAD (coronary artery disease) Cirrhosis Edema extremities Hyponatremia Sacral decubitus ulcer, stage IV Social History Smoking/Tobacco Use Status: Current every day Smoking risk assessment performed?: Yes Drug use: Never Additional Social history: pt appears unable to take care of self at home. Exam Narrative Exam Narrative: He is sitting in bed. Much of the left side of his face is gone. At I am unsure if he can see out of his left eye. His heart is regular. He is oriented x3 Results Last Vital Signs Temp 103.4 F H 09/30/20 13:37 Pulse 137 H 09/30/20 13:37 Resp 33 H 09/30/20 13:37 BP 97/54 L 09/30/20 13:37 Pulse Ox 91 L 09/30/20 13:37
--- NOTE | 2020-10-02 13:31 | PHA.REVIEW ---
Pharmacy Admission Review - Admission Clinical Review (Last Reviewed 09/30/20 @ 16:01 by Talon Galeano DO) Admission for end of life care (Acute) Adult failure to thrive (Acute) Staphylococcus aureus bacteremia with sepsis (Acute) Palliative care patient (Acute) Metastatic squamous cell carcinoma to head and neck (Acute) Failure to thrive (Acute) No Known Allergies Allergy (Unverified 08/26/16 10:08) Resuscitation Status DNR/DNI Weight 53.5 kg - Renal Dosing Medications needing adjustments: N/A - Anticoagulation DVT Prophylaxis: N/A Therapeutic Anticoagulation: N/A - Opiate Usage Evaluate Pain Scale/Pains Meds: Reviewed Scheduled Bowel Reg ordered if on Opiates?: No (Will mention to provider) - Relevant Labs Electrolytes, C-Reactive P, ESR: N/A - DM Control Insulin Dosing: N/A - Heart Failure/[place] EF%, FAROOQ's, B-Blockers, Diuretics: N/A - BP Control If elevated: N/A - Qtc Review If Elevated: N/A - IV to PO Switch IV Medications: N/A - Home Meds Home Med List reviewed: Reviewed - Current meds Current Medication Order Review: Reviewed - Comments Comments/Follow Ups: Watch for med changes.
--- NOTE | 2020-10-02 17:25 | CMPROGNOTE_ITS ---
Care Management Progress Note CM discussion final arrangements with Gene's sister, Shweta. Shweta reports purchasing a cemetery plot for her brother. She states historically, her family has utilized [employer] in [place] P# [phone]. Shweta reached out to [facility] to notify that she anticipated Gene would pass in the near future. She reported [facility] stated the hospital could call the home directly when the time arrives.
[2020-10-03] MEDS: MORPHine 250 MG in Normal Saline 245 ML IV (12:23)
[2020-10-03] MEDS: Fentanyl Patch Removal 1 EACH TP (14:09)
--- NOTE | 2020-10-06 13:01 | EXPE_ITS ---
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 Reason for consult:: routine visit for dying patient 09/30/20 14:31 Care Management Consult [CONS] Routine Consultation Status:: Contact made by MD Clarification:: Manage/follow per spec. Reason for consult:: care management Discharge Sum: Diag PCOD Cause of : Sepsis Contributing Factors (1) Adult failure to thrive: (2) Staphylococcus aureus bacteremia with sepsis: (3) Admission for end of life care: (4) Palliative care patient: Discharge Sum: Summary Date and Time Admission Date: 10/01/2107/11/21 14:21 Date of : 10/03/20 Time of : 20:15 Summary Details: This is a 50-year-old gentleman admitted with sepsis not want to be treated other than palliative care. He was kept comfortable with IV meds and comfortably at 20:15 on 10/03/2020. He had complications of squamous cell carcinoma invading locally and basically eating away the patient's face with gaping open wounds from local invasion. He was malnourished chronically and only drinking beer through the syringe prior to being admitted.
== END 2020-10-03 21:13 | disposition expired | DRG 871 ==
LOC: ER 13:36 → MS 16:04
PROVIDERS: Admitting Provider Internal Medicine; Emergency Provider Student in an Organized Health Care Education/Training Program; PCP Internal Medicine; Visit Provider Internal Medicine
DX: A41.01 Sepsis due to Methicillin susceptible Staphylococcus aureus (principal); L89.154 Pressure ulcer of sacral region, stage 4; C79.89 Secondary malignant neoplasm of other specified sites; E87.1 Hypo-osmolality and hyponatremia; R62.7 Adult failure to thrive; Z66 Do not resuscitate; Z51.5 Encounter for palliative care; F10.10 Alcohol abuse, uncomplicated; I25.10 Atherosclerotic heart disease of native coronary artery without angina pectoris; K74.60 Unspecified cirrhosis of liver; R60.0 Localized edema
CPT/HCPCS: 87635; 99285; 99305; 99238; 99282; J3490